=== PATIENT | female | born 1970 | race American Indian/Alaskan Native ===

== ENCOUNTER 2022-01-28 11:49 | Inpatient (IN) | payer SELFPAY ==
[2022-01-28] MEDS ORDERED: LORazepam 2 MG/ML VIAL IV ONE (12:04)
--- NOTE | 2022-01-28 12:43 | Emergency Department Report ---
<CHANDAN ESPINOSA - Last Filed: 01/28/22 15:30> ED Seizure HPI - General Stated Complaint: SEIZURE Time Seen by Provider: 01/28/22 11:54 - History of Present Illness Initial Comments: 51-year-old female brought in by EMS initially with likely stroke but on presentation patient was having seizure as described by patient boyfriend to the EMS. Patient has history of seizure but has not had any episode in the last 5 years and not currently taking any medication. According to EMS patient was postictal when they arrived at her home. Patient is currently having seizure in the emergency room at this point. She was treated with 2 mg of Ativan with some improvement. History is quite limited at this point. - Related Data Home Medications Medication Instructions Recorded Confirmed Last Taken No Known Home Medications [No 11/02/15 11/02/15 Unknown Reported Home Medications] Allergies Allergy/AdvReac Type Severity Reaction Status Date / Time ibuprofen [From Motrin] AdvReac Mild Unknown Verified 01/28/22 12:41 ED Review of Systems Comment: All other systems reviewed and negative Constitutional: malaise Neurological: weakness, other (seizure) ED Past Medical Hx - Past Medical History Hx Seizures: Yes (non-compliant with meds) - Surgical History Additional Surgical History: UNKNOWN - Social History Smoking Status: Current Every Day Smoker Substance Use Type: Alcohol - Medications Home Medications: Home Medications Medication Instructions Recorded Confirmed Last Taken Type No Known Home Medications [No 11/02/15 11/02/15 Unknown History Reported Home Medications] ED Physical Exam - General Limitations: No Limitations General appearance: postictal, other (pt became a little alert and was answering question at this time after the ativan) - Head Head exam: Present: normal inspection - Eye Eye exam: Present: normal appearance, scleral icterus, other Pupils: Present: normal accommodation - ENT ENT exam: Present: normal exam, normal orophraynx - Neck Neck exam: Present: normal inspection, full ROM. Absent: tenderness - Respiratory Respiratory exam: Present: normal lung sounds bilaterally. Absent: respiratory distress, accessory muscle use - Cardiovascular Cardiovascular Exam: Present: regular rate, normal rhythm, normal heart sounds - GI/Abdominal GI/Abdominal exam: Present: soft. Absent: distended, tenderness ED Course - Reevaluation(s) Reevaluation #1: 01/28/22 12:47 seizure activity with noted generalized jaundice-- will go ahead and load patient up with keppra, get CT head to rule out any intracranial abnormality and routine CBC, CMP, UA and drug screen. Reevaluation #2: 01/28/22 15:[address] Odonnell while waiting for patient labs-- ED Medical Decision Making - Lab Data Result diagrams: 01/28/22 12:27 01/28/22 12:27 ED Disposition Clinical Impression: Seizure, Pancreatic mass, Jaundice, Elevated liver enzymes, Alcohol abuse, Anemia Disposition: ADMITTED INPATIENT Is pt being admited?: No Does the pt Need Aspirin: No Condition: Stable Referrals: PRIMARY CARE, [Primary Care Provider] - 3-5 Days <MORRIS ODONNELL - Last Filed: 01/28/22 17:41> ED Review of Systems ROS: Stated complaint: SEIZURE Other details as noted in HPI ED Course Vital Signs 01/28/22 01/28/22 01/28/22 12:13 12:25 12:48 Temperature Pulse Rate 101 H Respiratory 15 16 Rate Blood Pressure 136/87 Blood Pressure [Right] O2 Sat by Pulse 100 100 100 Oximetry 01/28/22 01/28/22 15:07 17:24 Temperature 98.6 F Pulse Rate 99 H 92 H Respiratory 16 18 Rate Blood Pressure Blood Pressure 174/104 166/102 [Right] O2 Sat by Pulse 100 100 Oximetry ED Medical Decision Making - Lab Data Result diagrams: 01/28/22 12:27 01/28/22 12:27 Critical care attestation.: If time is entered above; I have spent that time in minutes in the direct care of this critically ill patient, excluding procedure time. ED Disposition Is pt being admited?: Yes Time of Disposition: 17:39 (Dr Pack/hospitalist)
[2022-01-28] MEDS ORDERED: SODIUM CHLORIDE 0.9% 1000 ML 1,000 ML IV ONE (12:49)
[2022-01-28] MEDS ORDERED: levETIRAcetam 1000 MG/NS 0.75% 1,000 MG/100 ML BAG IV ONE (12:49)
--- NOTE | 2022-01-28 13:13 | Cat Scan Report ---
CT head/brain wo con INDICATION / CLINICAL INFORMATION: 51 years Female; seizure. TECHNIQUE: Routine CT head without contrast. All CT scans at this location are performed using CT dos e reduction for ALARA by means of automated exposure control. COMPARISON: 11/02/2015 FINDINGS: BRAIN / INTRACRANIAL CONTENTS: No acute hemorrhage, mass effect, midline shift, hydrocephalus, or acu te, large territorial infarct. No signs of significant atrophy or chronic infarct. There are mild areas of decreased attenuation in the white matter of the cerebral hemispheres, as wel l as the gangliocapsular regions. These are nonspecific findings and may be related to microangiopath y (hypertension, diabetes, atherosclerosis), given the patient's age. CRANIOCERVICAL JUNCTION: No significant abnormality. ORBITS: No significant abnormality of visualized orbits. SINUSES / MASTOIDS: Mucosal thickening and/or desiccated secretions seen in the maxillary antra. Fron yaneth sinuses are hypoplastic. ADDITIONAL FINDINGS: Periodontal disease seen with the posterior molars along the right maxillary al veolar ridge. Atherosclerotic disease is seen in the anterior circulation. There is borderline widening of the atlanto-dens interval. Flexion-extension views of the cervical sp ine would be helpful in evaluating for any instability at this level. Note, a fibrous seen in the pos terior arch of C1 is suggested, which is of normal variant. IMPRESSION: 1. No focal mass, hemorrhage, hydrocephalus, or acute, large territorial infarct. Follow-up with diff usion imaging by MRI, as clinically warranted. 2. Borderline widening of the atlanto-dens interval, as described above. Follow-up with flexion and e xtension views of the cervical spine, as clinically warranted. Signer Name: Cayden Tsai MD, III Signed: 01/28/2022 1:08 PM Workstation Name: [id number]
[2022-01-28 13:14] LABS: Alanine Aminotransferase 139 units/L (7-56); Albumin 3.3 g/dL (3.9-5); Blood Urea Nitrogen 8 mg/dL (7-17); Calcium 9.6 mg/dL (8.4-10.2); Hemolysis Index 0
[2022-01-28 13:22] LABS: INR 1.14 (0.87-1.13)
[2022-01-28 13:23] LABS: Partial Thromboplastin Time 32.5 Sec. (24.2-36.6)
[2022-01-28 13:42] LABS: BUN/Creatinine Ratio 40
[2022-01-28 14:06] LABS: Red Blood Count 2.15 M/mm3 (3.65-5.03)
[2022-01-28 14:08] LABS: Hematocrit 16.6 % (30.3-42.9); Hemoglobin 5.3 gm/dl (10.1-14.3); Mean Corpuscular HGB Conc 32 % (30-34); Mean Corpuscular Volume 77 fl (79-97); Platelet Count 603 K/mm3 (140-440); Red Cell Distribution Width 22.1 % (13.2-15.2)
[2022-01-28 14:58] LABS: Eosinophils % (Manual) 0 % (0.0-4.3); Total Cells Counted 100
[2022-01-28 15:09] LABS: Anisocytosis 1+; Poikilocytosis 1+
[2022-01-28 15:10] LABS: Hypochromasia 2+; Large Platelets Rare; Platelet Estimate Consistent w Auto; Stomatocytes Few; Target Cells 1+
[2022-01-28 15:43] LABS: Bacteria,Urine 2+ /HPF (Negative); Bilirubin,Urine MOD (Negative); Blood,Urine MOD (Negative); Color,Urine Amber (Yellow); Mucus,Urine FEW /HPF; Protein,Urine <15 mg/dL mg/dL (Negative)
--- NOTE | 2022-01-28 15:46 | Emergency Department Report ---
Blank Doc - Documentation Documentation: Patient was signed out to me by previous treating provider Dr. Rodriges I interviewed patient. Patient initially had a syncopal episode with seizure in route with EMS. History of alcohol withdrawal seizure in the past. Patient does drink daily with last drink yesterday but denies history of recent alcohol withdrawal tremors. Last drink was last night. patient is noted to be jaundiced on physical examination and is unsure as to how long this has been present. Labs revealed significant anemia without reports of melena or hematochezia, elevated LFTs, and a low potassium. patient received Ativan and Keppra prior to my evaluation Additional tests have been ordered including type and screen, acute hepatitis panel, ammonia level, and magnesium CT abdomen pelvis with IV contrast ordered CT ABDOMEN AND PELVIS WITH CONTRAST HISTORY: jaundice, elevated lfts. COMPARISON: None. TECHNIQUE: CT images of the abdomen and pelvis were obtained following administration of intravenous contrast. All CT scans at this location are performed using CT dose reduction for ALARA by means of automated exposure control. CONTRAST: 100 ml of intravenous contrast administered. FINDINGS: Lungs/bones: Lung bases are clear Abdomen/pelvis: There is significant intra and extrahepatic biliary ductal dilatation. There is fluid surrounding the gallbladder. The common bile duct is very difficult to evaluate. There is a large masslike appearance within the pancreatic head measuring 5.3 x 5.2 cm. This appears to be obstructing the common bile duct and the portal vein. There is significant narrowing of the portal vein in the region of the masslike density. Large area of hypodensity within this mass in the region of the pancreatic head neck. Pancreatic ductal dilatation is seen in the body and distally. Mild thickening of the adjacent stomach wall is also seen however no bowel obstruction is seen. Large mesenteric nodes are seen. In the left upper abdomen there is a large mesenteric node measuring 1.6 cm peripancreatic nodes also suggested. Calcifications left kidney. There is prominence of left renal pelvis. Ureters are normal in size and appearance. Urinary bladder is distended. A few small inguinal nodes are identified. Constipation is seen within the colon. Uterus is heterogeneous with fluid in the endometrium. Appendix is not well seen. Spleen is unremarkable. The gallbladder is markedly distended best seen on coronal images. IMPRESSION: 1. Marked intra and extrahepatic biliary ductal dilatation. There is obstruction of the common bile duct with a large mass in the region of the pancreatic head measuring 5.3 x 5.2 cm. There is also severe stenosis and narrowing of the portal vein in the region of the mass is well. Adenopathy in the upper abdomen measuring up to 1.6 cm. 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 Pancreatic ductal dilatation is also identified. 2. Marked gallbladder distention with fluid surrounding the gallbladder secondary to obstructive change 3. Mild prominence of left renal pelvis with left calyceal calcifications. Ureter is normal in size and appearance. general surgeon Dr Milan consulted, requested GI consult and possible IR consult case d/w Dr crook, [facility], will consult pt will be admitted to the hospitalist service. case d/w Dr Pack
[2022-01-28 15:55] LABS: Amphetamine Screen,Urine PRESUMPTIVE NEGATIVE; Benzodiazepines Screen,Urine PRESUMPTIVE NEGATIVE; Cannabinoid Screen,Urine PRESUMPTIVE NEGATIVE; Cocaine Screen,Urine PRESUMPTIVE NEGATIVE; Methadone Screen,Urine PRESUMPTIVE NEGATIVE; Opiate Screen,Urine PRESUMPTIVE NEGATIVE
--- NOTE | 2022-01-28 17:17 | Cat Scan Report ---
CT ABDOMEN AND PELVIS WITH CONTRAST HISTORY: jaundice, elevated lfts. COMPARISON: None. TECHNIQUE: CT images of the abdomen and pelvis were obtained following administration of intravenous contrast. All CT scans at this location are performed using CT dose reduction for ALARA by means of automated exposure control. CONTRAST: 100 ml of intravenous contrast administered. FINDINGS: Lungs/bones: Lung bases are clear Abdomen/pelvis: There is significant intra and extrahepatic biliary ductal dilatation. There is flui d surrounding the gallbladder. The common bile duct is very difficult to evaluate. There is a large m asslike appearance within the pancreatic head measuring 5.3 x 5.2 cm. This appears to be obstructing the common bile duct and the portal vein. There is significant narrowing of the portal vein in the re gion of the masslike density. Large area of hypodensity within this mass in the region of the pancrea tic head neck. Pancreatic ductal dilatation is seen in the body and distally. Mild thickening of the adjacent stomach wall is also seen however no bowel obstruction is seen. Large mesenteric nodes are seen. In the left upper abdomen there is a large mesenteric node measuring 1.6 cm peripancreatic nodes also suggested. Calcifications left kidney. There is prominence of left renal pelvis. Ureters are normal in size and appearance. Urinary bladder is distended. A few small inguinal nodes are identified. Constipation is seen within the colon. Uterus is heterogeneous with fluid in the endometrium. Appendix is not well seen. Spleen i s unremarkable. The gallbladder is markedly distended best seen on coronal images. IMPRESSION: 1. Marked intra and extrahepatic biliary ductal dilatation. There is obstruction of the common bile d uct with a large mass in the region of the pancreatic head measuring 5.3 x 5.2 cm. There is also my re stenosis and narrowing of the portal vein in the region of the mass is well. Adenopathy in the upp er abdomen measuring up to 1.6 cm. Findings suggest pancreatic malignancy with metastatic harriett disea se. Pancreatic ductal dilatation is also identified. 2. Marked gallbladder distention with fluid surrounding the gallbladder secondary to obstructive napoles ge 3. Mild prominence of left renal pelvis with left calyceal calcifications. Ureter is normal in size a nd appearance. Signer Name: Gallito Sim MD Signed: 01/28/2022 5:13 PM Workstation Name: [id number]
[2022-01-28] MEDS ORDERED: SODIUM CHLORIDE 0.9% 500 ML 500 ML IV ONE (17:37)
[2022-01-28] MEDS ORDERED: LORazepam 2 MG/ML VIAL IV PRN ×2 (17:45)
[2022-01-28 18:53] LABS: Hepatitis B Surface Antigen Non-Reactive (Negative); Hepatitis C Virus Antibody Non-Reactive (NonReactive)
[2022-01-28] MEDS ORDERED: ACETAMINOPHEN 325 MG TAB PO PRN (20:58)
[2022-01-28] MEDS ORDERED: MORPHINE 2 MG/1 ML INJ IV PRN (20:58)
[2022-01-28] MEDS ORDERED: HYDROmorphone 1 MG/1 ML INJ IV PRN (20:58)
[2022-01-28] MEDS ORDERED: ONDANSETRON 4 MG/2 ML INJ IV PRN (20:58)
--- NOTE | 2022-01-28 21:14 | History and Physical Report ---
History of Present Illness Date of examination: 01/28/22 Date of admission: 01/28/2023 Chief complaint: Seizures x1 History of present illness: 51-year-old female brought in by EMS initially with likely stroke but on presentation patient was having seizure as described by patient boyfriend to the EMS. Patient has history of seizure but has not had any episode in the last 5 years and not currently taking any medication. According to EMS patient was postictal when they arrived at her home. Patient is currently having seizure in the emergency room at this point. She was treated with 2 mg of Ativan with some improvement. Patient is more alert and oriented during my examination Patient's face is yellow and the eyes are yellow. When asked about her facial color and eye discoloration---patient is unaware As loss of appetite for the past 1 month and loss of weight. - Past Medical History Hx Seizures: Yes (non-compliant with meds) - Surgical History Additional Surgical History: UNKNOWN - Social History Smoking Status: Current Every Day Smoker Substance Use Type: Alcohol regularly - Medications Home Medications: Home Medications Medication Instructions Recorded Confirmed Last Taken Type No Known Home Medications [No 11/02/15 11/02/15 Unknown History Reported Home Medications] Review of Systems Comment: All other systems reviewed and negative Constitutional: malaise Neurological: weakness, other (seizure) Medications and Allergies Allergies Allergy/AdvReac Type Severity Reaction Status Date / Time ibuprofen [From Motrin] AdvReac Mild Unknown Verified 01/28/22 12:41 Home Medications Medication Instructions Recorded Confirmed Last Taken Type No Known Home Medications [No 11/02/15 11/02/15 Unknown History Reported Home Medications] Active Meds: Active Medications Lorazepam (Lorazepam 2 Mg/Ml Vial) 2 mg IV Q1HR PRN PRN Reason: CIWA-Ar 8-15 Lorazepam (Lorazepam 2 Mg/Ml Vial) 4 mg IV Q1HR PRN PRN Reason: CIWA-Ar 16-25 Exam - Constitutional Vitals: Temp Pulse Resp BP Pulse Ox 98.6 F 92 H 18 166/102 100 01/28/22 17:24 01/28/22 17:24 01/28/22 17:24 01/28/22 17:24 01/28/22 17:24 General appearance: Present: mild distress, cachectic - EENT Eyes: Present: PERRL, scleral icterus ENT: hearing intact, clear oral mucosa - Neck Neck: Present: supple, normal ROM - Respiratory Respiratory effort: normal Respiratory: bilateral: CTA - Cardiovascular Heart rate: 78 Rhythm: regular Heart Sounds: Present: S1 & S2. Absent: rub, click - Extremities Extremities: no ischemia, pulses intact, pulses symmetrical, No edema Peripheral Pulses: within normal limits - Abdominal General gastrointestinal: Present: soft, non-tender, non-distended, normal bowel sounds Female genitourinary: Present: normal - Integumentary Integumentary: Present: clear, warm, dry - Musculoskeletal Musculoskeletal: gait normal, strength equal bilaterally - Psychiatric Psychiatric: appropriate mood/affect, intact judgment & insight - Neurologic Neurologic: CNII-XII intact, moves all extremities HEART Score - HEART Score Troponin: Troponin T < 0.010 ng/mL (0.00-0.029) 01/28/22 12:27 Results - Labs CBC & Chem 7: 01/29/22 03:54 01/29/22 03:54 Labs: Laboratory Last Values WBC 11.5 K/mm3 (4.5-11.0) H 01/28/22 12:27 RBC 2.15 M/mm3 (3.65-5.03) L 01/28/22 12:27 Hgb 5.3 gm/dl (10.1-14.3) L* 01/28/22 12:27 Hct 16.6 % (30.3-42.9) L* 01/28/22 12:27 MCV 77 fl (79-97) L 01/28/22 12:27 MCH 25 pg (28-32) L 01/28/22 12:27 MCHC 32 % (30-34) 01/28/22 12:27 RDW 22.1 % (13.2-15.2) H 01/28/22 12:27 Plt Count 603 K/mm3 (140-440) H 01/28/22 12:27 Lymph % (Auto) Getter Operator 01/28/22 12:27 [place] % (Auto) Getter Operator 01/28/22 12:27 Eos % (Auto) Getter Operator 01/28/22 12:27 Baso % (Auto) Getter Operator 01/28/22 12:27 Lymph # (Auto) Getter Operator 01/28/22 12:27 [place] # (Auto) Getter Operator 01/28/22 12:27 Eos # (Auto) Getter Operator 01/28/22 12:27 Baso # (Auto) Getter Operator 01/28/22 12:27 Add Manual Diff Complete 01/28/22 12:27 Total Counted 100 01/28/22 12:27 Seg Neutrophils % Getter Operator 01/28/22 12:27 Seg Neuts % (Manual) 83.0 % (40.0-70.0) H 01/28/22 12:27 Band Neutrophils % 0 % 01/28/22 12:27 Lymphocytes % (Manual) 9.0 % (13.4-35.0) L 01/28/22 12:27 Reactive Lymphs % (Man) 3.0 % 01/28/22 12:27 Monocytes % (Manual) 4.0 % (0.0-7.3) 01/28/22 12:27 Eosinophils % (Manual) 0 % (0.0-4.3) 01/28/22 12:27 Basophils % (Manual) 1.0 % (0.0-1.8) 01/28/22 12:27 Metamyelocytes % 0 % 01/28/22 12:27 Myelocytes % 0 % 01/28/22 12:27 Promyelocytes % 0 % 01/28/22 12:27 Blast Cells % 0 % 01/28/22 12:27 Nucleated RBC % 3.0 % (0.0-0.9) H 01/28/22 12:27 Seg Neutrophils # Getter Operator 01/28/22 12:27 Seg Neutrophils # Man 9.5 K/mm3 (1.8-7.7) H 01/28/22 12:27 Band Neutrophils # 0.0 K/mm3 01/28/22 12:27 Lymphocytes # (Manual) 1.0 K/mm3 (1.2-5.4) L 01/28/22 12:27 Abs React Lymphs (Man) 0.3 K/mm3 01/28/22 12:27 Monocytes # (Manual) 0.5 K/mm3 (0.0-0.8) 01/28/22 12:27 Eosinophils # (Manual) 0.0 K/mm3 (0.0-0.4) 01/28/22 12:27 Basophils # (Manual) 0.1 K/mm3 (0.0-0.1) 01/28/22 12:27 Metamyelocytes # 0.0 K/mm3 01/28/22 12:27 Myelocytes # 0.0 K/mm3 01/28/22 12:27 Promyelocytes # 0.0 K/mm3 01/28/22 12:27 Blast Cells # 0.0 K/mm3 01/28/22 12:27 WBC Morphology Not Reportable 01/28/22 12:27 Hypersegmented Neuts Not Reportable 01/28/22 12:27 Hyposegmented Neuts Few 01/28/22 12:27 Hypogranular Neuts Not Reportable 01/28/22 12:27 Smudge Cells Not Reportable 01/28/22 12:27 Toxic Granulation Not Reportable 01/28/22 12:27 Toxic Vacuolation Not Reportable 01/28/22 12:27 Dohle Bodies Not Reportable 01/28/22 12:27 Pelger-Huet Anomaly Not Reportable 01/28/22 12:27 Trevor Rods Not Reportable 01/28/22 12:27 Platelet Estimate Consistent w auto 01/28/22 12:27 Clumped Platelets Not Reportable 01/28/22 12:27 Plt Clumps, EDTA Not Reportable 01/28/22 12:27 Large Platelets Rare 01/28/22 12:27 Giant Platelets Not Reportable 01/28/22 12:27 Platelet Satelliting Not Reportable 01/28/22 12:27 Plt Morphology Comment Not Reportable 01/28/22 12:27 RBC Morphology Not Reportable 01/28/22 12:27 Dimorphic RBCs Not Reportable 01/28/22 12:27 Polychromasia Rare 01/28/22 12:27 Hypochromasia 2+ 01/28/22 12:27 Poikilocytosis 1+ 01/28/22 12:27 Anisocytosis 1+ 01/28/22 12:27 Microcytosis Not Reportable 01/28/22 12:27 Macrocytosis Not Reportable 01/28/22 12:27 Spherocytes Not Reportable 01/28/22 12:27 Pappenheimer Bodies Not Reportable 01/28/22 12:27 Sickle Cells Not Reportable 01/28/22 12:27 Target Cells 1+ 01/28/22 12:27 Tear Drop Cells Not Reportable 01/28/22 12:27 Ovalocytes Not Reportable 01/28/22 12:27 Stomatocytes Few 01/28/22 12:27 Helmet Cells Not Reportable 01/28/22 12:27 Lozoya-Elfrida Bodies Not Reportable 01/28/22 12:27 [place] Rings Not Reportable 01/28/22 12:27 [place] Cells Not Reportable 01/28/22 12:27 Bite Cells Not Reportable 01/28/22 12:27 Crenated Cell Not Reportable 01/28/22 12:27 Elliptocytes Not Reportable 01/28/22 12:27 Acanthocytes (Spur) Not Reportable 01/28/22 12:27 Rouleaux Not Reportable 01/28/22 12:27 Hemoglobin C Crystals Not Reportable 01/28/22 12:27 Schistocytes Not Reportable 01/28/22 12:27 Malaria parasites Not Reportable 01/28/22 12:27 Robby Bodies Not Reportable 01/28/22 12:27 Hem Pathologist Commnt No 01/28/22 12:27 PT 15.9 Sec. (12.2-14.9) H 01/28/22 12:27 INR 1.14 (0.87-1.13) H 01/28/22 12:27 APTT 32.5 Sec. (24.2-36.6) 01/28/22 12:27 Sodium 131 mmol/L (137-145) L 01/28/22 12:27 Potassium 3.1 mmol/L (3.6-5.0) L 01/28/22 12:27 Chloride 96.0 mmol/L (98-107) L 01/28/22 12:27 Carbon Dioxide 19 mmol/L (22-30) L 01/28/22 12:27 Anion Gap 19 mmol/L 01/28/22 12:27 BUN 8 mg/dL (7-17) 01/28/22 12:27 Creatinine < 0.2 mg/dL (0.6-1.2) L 01/28/22 12:27 Estimated GFR > 60 ml/min 01/28/22 12:27 BUN/Creatinine Ratio 40 % 01/28/22 12:27 Glucose 223 mg/dL (65-100) H 01/28/22 12:27 Calcium 9.6 mg/dL (8.4-10.2) 01/28/22 12:27 Magnesium 1.80 mg/dL (1.7-2.3) 01/28/22 12:27 Total Bilirubin 17.30 mg/dL (0.1-1.2) H 01/28/22 12:27 AST 246 units/L (5-40) H 01/28/22 12:27 ALT 139 units/L (7-56) H 01/28/22 12:27 Alkaline Phosphatase 798 units/L (35-129) H 01/28/22 12:27 Ammonia 28.0 umol/L (25-60) 01/28/22 15:36 Troponin T < 0.010 ng/mL (0.00-0.029) 01/28/22 12:27 NT-Pro-B Natriuret Pep 33.37 pg/mL (0-900) 01/28/22 12:27 Total Protein 6.1 g/dL (6.3-8.2) L 01/28/22 12:27 Albumin 3.3 g/dL (3.9-5) L 01/28/22 12:27 Albumin/Globulin Ratio 1.2 % 01/28/22 12:27 TSH 1.900 mlU/mL (0.270-4.200) 01/28/22 12:27 Urine Color Siria (Yellow) 01/28/22 15:07 Urine Turbidity Clear (Clear) 01/28/22 15:07 Urine pH 7.0 (5.0-7.0) 01/28/22 15:07 Ur Specific [place] 1.006 (1.003-1.030) 01/28/22 15:07 Urine Protein <15 mg/dl mg/dL (Negative) 01/28/22 15:07 Urine Glucose (UA) 150 mg/dL (Negative) 01/28/22 15:07 Urine Ketones Neg mg/dL (Negative) 01/28/22 15:07 Urine Blood Mod (Negative) 01/28/22 15:07 Urine Nitrite Neg (Negative) 01/28/22 15:07 Urine Bilirubin Mod (Negative) 01/28/22 15:07 Urine Ictotest Not Reportable 01/28/22 15:07 Urine Urobilinogen 4.0 mg/dL (<2.0) 01/28/22 15:07 Ur Leukocyte Esterase Tr (Negative) 01/28/22 15:07 Urine WBC (Auto) 3.0 /HPF (0.0-6.0) 01/28/22 15:07 Urine RBC (Auto) 52.0 /HPF (0.0-6.0) 01/28/22 15:07 U Epithel Cells (Auto) 17.0 /HPF (0-13.0) H 01/28/22 15:07 Urine Bacteria (Auto) 2+ /HPF (Negative) 01/28/22 15:07 Urine Mucus Few /HPF 01/28/22 15:07 Urine Opiates Screen Presumptive negative 01/28/22 15:07 Urine Methadone Screen Presumptive negative 01/28/22 15:07 Ur Barbiturates Screen Presumptive negative 01/28/22 15:07 Ur Phencyclidine Scrn Presumptive negative 01/28/22 15:07 Ur Amphetamines Screen Presumptive negative 01/28/22 15:07 U Benzodiazepines Scrn Presumptive negative 01/28/22 15:07 Urine Cocaine Screen Presumptive negative 01/28/22 15:07 U Marijuana (THC) Screen Presumptive negative 01/28/22 15:07 Drugs of Abuse Note Disclamer 01/28/22 15:07 Hepatitis A IgM Ab Non-reactive (NonReactive) 01/28/22 15:42 Hep Bs Antigen Non-reactive (Negative) 01/28/22 15:42 Hep B Core IgM Ab Non-reactive (NonReactive) 01/28/22 15:42 Hepatitis C Antibody Non-reactive (NonReactive) 01/28/22 15:42 Blood Type A POSITIVE 01/28/22 15:44 Antibody Screen Negative 01/28/22 15:44 Crossmatch See Detail 01/28/22 15:44 Short CBC 01/28/22 01/29/22 Range/Units 12:27 03:54 WBC 11.5 H 13.0 H (4.5-11.0) K/mm3 Hgb 5.3 L* 6.8 L (10.1-14.3) gm/dl Hct 16.6 L* 21.2 L (30.3-42.9) % Plt Count 603 H 540 H (140-440) K/mm3 BMP 01/28/22 01/29/22 12:27 03:54 Sodium 131 L 137 Potassium 3.1 L 3.2 L Chloride 96.0 L 104.6 Carbon Dioxide 19 L 17 L BUN 8 6 L Creatinine < 0.2 L < 0.2 L Glucose 223 H 127 H Calcium 9.6 9.0 Cardiac Enzymes 01/28/22 Range/Units 12:27 Troponin T < 0.010 (0.00-0.029) ng/mL Liver Function 01/28/22 01/29/22 Range/Units 12:27 03:54 Total Bilirubin 17.30 H 15.70 H (0.1-1.2) mg/dL AST 246 H 264 H (5-40) units/L ALT 139 H 141 H (7-56) units/L Alkaline Phosphatase 798 H 772 H (35-129) units/L Albumin 3.3 L 2.9 L (3.9-5) g/dL Urine 01/28/22 Range/Units 15:07 Urine Color Sir[place] (Yellow) Urine pH 7.0 (5.0-7.0) Ur Specific [place] 1.006 (1.003-1.030) Urine Protein <15 mg/dl (Negative) mg/dL Urine Glucose (UA) 150 (Negative) mg/dL - Imaging and Cardiology Imaging and Cardiology: Abdominal CAT scan Mild intra and extrahepatic biliary ductal dilatation. There is obstruction of the common bile duct with a large mass in the region of the pancreatic head measuring 5.3 cm X5 0.2 cm. There is also severe stenosis and narrowing of the portal vein in the region of the mass as well. Adenopathy in the upper abdomen measuring up to 1.2 0.6 cm. Findings high risk for pancreatic malignancy with metastatic harriett disease. Pa ncreatic ductal dilatation also identified. Mild gallbladder distention noted. Fluid surrounding the gallbladder secondary to obstructive change. Mild prominence of the left renal pelvis and left with left calyceal calcification ureter is normal. Head CT No acute findings. Assessment and Plan Advance Directives: Yes (Full code) VTE prophylaxis?: Chemical Plan of care discussed with patient/family: Yes - Patient Problems (1) Severe anemia Current Visit: Yes Status: Acute Plan to address problem: Transfuse 2 to 3 units of packed red blood cells Possibly secondary to pancreatic cancer (2) Obstructive jaundice Current Visit: Yes Status: Acute Plan to address problem: Patient has a high bilirubin count of 17.3, AST of 246 and ALT of 139. Alk phos 07 98. Pancreatic mass. (3) Pancreatic cancer Current Visit: Yes Status: Acute Qualifiers: Pancreatic malignancy location: head of pancreas Qualified Code(s): C25.0 - Malignant neoplasm of head of pancreas Plan to address problem: Patient has newly diagnosed pancreatic mass especially involving the head and compressing the common bile duct with spread to the lymph nodes Surgery consult was requested and GI consult was requested Patient is stage IV Refer to oncology as outpatient Refer to [place] oncology== Dr. Gaines Palliative treatment for now Will defer to the primary team Possible discharge after transfusion and normalizing hemoglobin and hematocrit (4) Malnutrition Current Visit: Yes Status: Chronic Qualifiers: Protein-calorie malnutrition severity: moderate Plan to address problem: Secondary to pancreatic cancer Dietary supplements (5) Hyponatremia Current Visit: Yes Status: Acute Plan to address problem: IV fluids for now (6) Hypokalemia Current Visit: Yes Status: Acute Plan to address problem: Supplemented (7) Advanced care planning/counseling discussion Current Visit: Yes Status: Acute Plan to address problem: Patient is in denial- Disease education conducted, care plan discussed, diagnosis discussed, prognosis discussed. Patient is full code. Patient acknowledges understanding and agreement with care plan. +30 minutes. Patient will be counseled about her diagnosis again by the primary team. Patient is referred to outpatient hematology oncology Dr. Gaines (8) DVT prophylaxis Current Visit: Yes Status: Acute Plan to address problem: On anticoagulation GI prophylaxis
[2022-01-28] MEDS ORDERED: SODIUM CHLORIDE 0.9% 500 ML 500 ML ONE (21:17)
[2022-01-29] MEDS: HEPARIN 5,000 UNIT/1 ML VIAL SUB-Q SCH ×3 (00:16→21:45)
[2022-01-29] MEDS: hydrALAZINE 20 MG/1 ML INJ IV PRN ×2 (02:39→14:45)
[2022-01-29] MEDS: D5W/0.9% NACL 1,000 ML IV SCH ×2 (02:40→20:08)
[2022-01-29 04:49] LABS: Hematocrit 21.2 % (30.3-42.9); Hemoglobin 6.8 gm/dl (10.1-14.3); Mean Corpuscular HGB Conc 32 % (30-34); Mean Corpuscular Volume 80 fl (79-97); Platelet Count 540 K/mm3 (140-440); Red Blood Count 2.66 M/mm3 (3.65-5.03); Red Cell Distribution Width 19.8 % (13.2-15.2)
[2022-01-29 05:07] LABS: Alanine Aminotransferase 141 units/L (7-56); Albumin 2.9 g/dL (3.9-5); Blood Urea Nitrogen 6 mg/dL (7-17); Hemolysis Index 0
[2022-01-29 05:16] LABS: BUN/Creatinine Ratio 30
[2022-01-29 06:26] LABS: Basophils % (Manual) 0 % (0.0-1.8); Total Cells Counted 100
[2022-01-29 06:27] LABS: Anisocytosis 1+; Hypochromasia 1+; Platelet Estimate Consistent w Auto; Target Cells 1+
[2022-01-29] MEDS ORDERED: SODIUM CHLORIDE 0.9% 500 ML 500 ML IV NR (08:52)
[2022-01-29] MEDS: POTASSIUM CHLORIDE 10 MEQ 10 MEQ/100 ML BAG IV SCH ×3 (09:32→13:22)
--- NOTE | 2022-01-29 09:45 | Electrocardiograph Report ---
[facility] Test Date: 2022-01-28 Test Time: 14:15:40 Pat Name: BOLIVAR [employer]AM[employer]ERS Department: Room: A476 1 Gender: F Lube Worker: ROVERTO : 1970 Requested By: CHANDAN ESPINOSA Order Number: [id number] Reading MD: Eris Cosme Measurements Intervals [place] Rate: 94 P: 1 RI: 149 QRS: 25 QRSD: 83 T: 15 QT: 374 QTc: 468 Interpretive Statements Sinus rhythm Probable LVH with secondary repol abnrm No previous ECG available for comparison Electronically Signed On 01-29-2022 9:45:30 EDT by Eris Cosme
--- NOTE | 2022-01-29 10:09 | Gastroenterology Consultation ---
History of Present Illness - Reason for Consult Consult date: 01/29/22 obstructive jaundice Requesting physician: ETIENNE PASTOR - History of Present Illness The patient is a 51 yo female who presented with seizure, found to have severe jaundice, with ct scan showing signs of pancreatic mass causing biliary/pd obstruction. pt has not noticed jaundice signs, does state her appetite has been poor for a few months, she has lost ~30 lbs in a couple months, and has mid abd discomfort with nausea. she has a previous history of alcohol use (? 2-3 beers daily, difficult to get history from pt), but last consumed alcohol in october. no known h/o pancreatitis. t bili 17, alk phos in 700s, ast/alt elevation on admission. levels were normal in 2015 based on records here. Past History Past Medical History: other (seizure) Past Surgical History: No surgical history Social history: alcohol abuse Family history: no significant family history Medications and Allergies Allergies Allergy/AdvReac Type Severity Reaction Status Date / Time ibuprofen [From Motrin] AdvReac Mild Unknown Verified 01/28/22 12:41 Home Medications Medication Instructions Recorded Confirmed Last Taken Type No Known Home Medications [No 11/02/15 01/29/22 Unknown History Reported Home Medications] Active Meds: Active Medications Acetaminophen (Acetaminophen 325 Mg Tab) 650 mg PO Q4H PRN PRN Reason: Pain MILD(1-3)/Fever >100.5/TAMAYO Heparin Sodium (Porcine) (Heparin 5,000 Unit/1 Ml Vial) 5,000 unit SUB-Q Q12HR RAE Last Admin: 01/29/22 09:33 Dose: 5,000 unit Hydralazine HCl (Hydralazine 20 Mg/1 Ml Inj) 10 mg IV Q6HR PRN PRN Reason: Hypertension Last Admin: 01/29/22 02:39 Dose: 10 mg Hydromorphone HCl (Hydromorphone 1 Mg/1 Ml Inj) 0.5 mg IV Q3H PRN PRN Reason: Pain , Severe (7-10) Dextrose/Sodium Chloride (D5ns) 1,000 mls @ 75 mls/hr IV DIRECT RAE Last Admin: 01/29/22 02:40 Dose: 75 mls/hr Levetiracetam 500 mg/ Dextrose 105 mls @ 400 mls/hr IV Q12HR RAE Potassium Chloride (Kcl 10meq/100ml) 10 meq in 100 mls @ 100 mls/hr IV Q1H RAE Stop: 01/29/22 12:59 Last Admin: 01/29/22 09:32 Dose: 100 mls/hr Potassium Chloride (Kcl 10meq/100ml) 10 meq in 100 mls @ 100 mls/hr IV Q1H RAE Stop: 01/29/22 17:59 Sodium Chloride (Nacl 0.9% 500 Ml) 500 mls @ 0 mls/hr IV ONCE NR Stop: 01/30/22 08:51 Lorazepam (Lorazepam 2 Mg/Ml Vial) 2 mg IV Q1HR PRN PRN Reason: CIWA-Ar 8-15 Lorazepam (Lorazepam 2 Mg/Ml Vial) 4 mg IV Q1HR PRN PRN Reason: CIWA-Ar 16-25 Morphine Sulfate (Morphine 2 Mg/1 Ml Inj) 2 mg IV Q4H PRN PRN Reason: Pain, Moderate (4-6) Ondansetron HCl (Ondansetron 4 Mg/2 Ml Inj) 4 mg IV Q8H PRN PRN Reason: Nausea And Vomiting Oxycodone/Acetaminophen (Oxycodone /Acetaminophen 5-325mg Tab) 1 tab PO Q6H PRN PRN Reason: Pain, Moderate (4-6) Sodium Chloride (Sodium Chloride 0.9% 10 Ml Flush Syringe) 10 ml IV BID [facility] Last Admin: 01/29/22 09:34 Dose: 10 ml Sodium Chloride (Sodium Chloride 0.9% 10 Ml Flush Syringe) 10 ml IV PRN PRN PRN Reason: LINE FLUSH Reviewed/updated patient's home and current medications Review of Systems - Review of Systems All systems: negative (per HPI) Exam - Constitutional Vital Signs: Temp Pulse Resp BP Pulse Ox 98.5 F 114 H 18 114/73 99 01/29/22 08:15 01/29/22 08:15 01/29/22 08:15 01/29/22 08:15 01/29/22 08:15 General appearance: no acute distress, other (thin, chronically ill appearing) - EENT Eyes: scleral icterus - Respiratory Respiratory effort: normal Respiratory: bilateral: CTA - Cardiovascular Rhythm: regular Heart Sounds: Present: S1 & S2 - Gastrointestinal General gastrointestinal: Present: soft, non-distended - Neurologic Neurological: alert and oriented x3 - Psychiatric Psychiatric: appropriate mood/affect - Labs CBC & Chem 7: 01/29/22 03:54 01/29/22 03:54 Lab Results: Laboratory Results - last 24 hr 01/28/22 01/28/22 01/28/22 12:27 12:27 12:27 WBC 11.5 H RBC 2.15 L Hgb 5.3 L* Hct 16.6 L* MCV 77 L MCH 25 L MCHC 32 RDW 22.1 H Plt Count 603 H Lymph % (Auto) [place] % (Auto) [place] Eos % (Auto) [place] Baso % (Auto) [place] Lymph # (Auto) [place] # (Auto) [place] Eos # (Auto) [place] Baso # (Auto) [place] Add Manual Diff Complete Total Counted 100 Seg Neutrophils % [place] Seg Neuts % (Manual) 83.0 H Band Neutrophils % 0 Lymphocytes % (Manual) 9.0 L Reactive Lymphs % (Man) 3.0 Monocytes % (Manual) 4.0 Eosinophils % (Manual) 0 Basophils % (Manual) 1.0 Metamyelocytes % 0 Myelocytes % 0 Promyelocytes % 0 Blast Cells % 0 Nucleated RBC % 3.0 H Seg Neutrophils # [place] Seg Neutrophils # Man 9.5 H Band Neutrophils # 0.0 Lymphocytes # (Manual) 1.0 L Abs React Lymphs (Man) 0.3 Monocytes # (Manual) 0.5 Eosinophils # (Manual) 0.0 Basophils # (Manual) 0.1 Metamyelocytes # 0.0 Myelocytes # 0.0 Promyelocytes # 0.0 Blast Cells # 0.0 WBC Morphology Not Reportable Hypersegmented Neuts Not Reportable Hyposegmented Neuts Few Hypogranular Neuts Not Reportable Smudge Cells Not Reportable Toxic Granulation Not Reportable Toxic Vacuolation Not Reportable Dohle Bodies Not Reportable Pelger-Huet Anomaly Not Reportable Trevor Rods Not Reportable Platelet Estimate Consistent w auto Clumped Platelets Not Reportable Plt Clumps, EDTA Not Reportable Large Platelets Rare Giant Platelets Not Reportable Platelet Satelliting Not Reportable Plt Morphology Comment Not Reportable RBC Morphology Not Reportable Dimorphic RBCs Not Reportable Polychromasia Rare Hypochromasia 2+ Poikilocytosis 1+ Anisocytosis 1+ Microcytosis Not Reportable Macrocytosis Not Reportable Spherocytes Not Reportable Pappenheimer Bodies Not Reportable Sickle Cells Not Reportable Target Cells 1+ Tear Drop Cells Not Reportable Ovalocytes Not Reportable Stomatocytes Few Helmet Cells Not Reportable [place] Bodies Not Reportable [place] Rings Not Reportable [place] Cells Not Reportable Bite Cells Not Reportable Crenated Cell Not Reportable Elliptocytes Not Reportable Acanthocytes (Spur) Not Reportable Rouleaux Not Reportable Hemoglobin C Crystals Not Reportable Schistocytes Not Reportable Malaria parasites Not Reportable Robby Bodies Not Reportable Hem Pathologist Commnt No PT INR APTT Sodium 131 L Potassium 3.1 L Chloride 96.0 L Carbon Dioxide 19 L Anion Gap 19 BUN 8 Creatinine < 0.2 L Estimated GFR > 60 BUN/Creatinine Ratio 40 Glucose 223 H Calcium 9.6 Magnesium Total Bilirubin 17.30 H AST 246 H ALT 139 H Alkaline Phosphatase 798 H Ammonia Troponin T < 0.010 NT-Pro-B Natriuret Pep Total Protein 6.1 L Albumin 3.3 L Albumin/Globulin Ratio 1.2 TSH 1.900 Urine Color Urine Turbidity Urine pH Ur Specific [place] Urine Protein Urine Glucose (UA) Urine Ketones Urine Blood Urine Nitrite Urine Bilirubin Urine Ictotest Urine Urobilinogen Ur Leukocyte Esterase Urine WBC (Auto) Urine RBC (Auto) U Epithel Cells (Auto) Urine Bacteria (Auto) Urine Mucus Urine Opiates Screen Urine Methadone Screen Ur Barbiturates Screen Ur Phencyclidine Scrn Ur Amphetamines Screen U Benzodiazepines Scrn Urine Cocaine Screen U Marijuana (THC) Screen Drugs of Abuse Note Hepatitis A IgM Ab Hep Bs Antigen Hep B Core IgM Ab Hepatitis C Antibody Blood Type Antibody Screen Crossmatch 01/28/22 01/28/22 01/28/22 12:27 12:27 12:27 WBC RBC Hgb Hct MCV MCH MCHC RDW Plt Count Lymph % (Auto) [place] % (Auto) Eos % (Auto) Baso % (Auto) Lymph # (Auto) [place] # (Auto) Eos # (Auto) Baso # (Auto) Add Manual Diff Total Counted Seg Neutrophils % Seg Neuts % (Manual) Band Neutrophils % Lymphocytes % (Manual) Reactive Lymphs % (Man) Monocytes % (Manual) Eosinophils % (Manual) Basophils % (Manual) Metamyelocytes % Myelocytes % Promyelocytes % Blast Cells % Nucleated RBC % Seg Neutrophils # Seg Neutrophils # Man Band Neutrophils # Lymphocytes # (Manual) Abs React Lymphs (Man) Monocytes # (Manual) Eosinophils # (Manual) Basophils # (Manual) Metamyelocytes # Myelocytes # Promyelocytes # Blast Cells # WBC Morphology Hypersegmented Neuts Hyposegmented Neuts Hypogranular Neuts Smudge Cells Toxic Granulation Toxic Vacuolation Dohle Bodies Pelger-Huet Anomaly Trevor Rods Platelet Estimate Clumped Platelets Plt Clumps, EDTA Large Platelets Giant Platelets Platelet Satelliting Plt Morphology Comment RBC Morphology Dimorphic RBCs Polychromasia Hypochromasia Poikilocytosis Anisocytosis Microcytosis Macrocytosis Spherocytes Pappenheimer Bodies Sickle Cells Target Cells Tear Drop Cells Ovalocytes Stomatocytes Helmet Cells Lozoya[place] Bodies [place] Rings Pia Cells Bite Cells Crenated Cell Elliptocytes Acanthocytes (Spur) Rouleaux Hemoglobin C Crystals Schistocytes Malaria parasites Robby Bodies Hem Pathologist Commnt PT 15.9 H INR 1.14 H APTT 32.5 Sodium Potassium Chloride Carbon Dioxide Anion Gap BUN Creatinine Estimated GFR BUN/Creatinine Ratio Glucose Calcium Magnesium 1.80 Total Bilirubin AST ALT Alkaline Phosphatase Ammonia Troponin T NT-Pro-B Natriuret Pep 33.37 Total Protein Albumin Albumin/Globulin Ratio TSH Urine Color Urine Turbidity Urine pH Ur Specific [place] Urine Protein Urine Glucose (UA) Urine Ketones Urine Blood Urine Nitrite Urine Bilirubin Urine Ictotest Urine Urobilinogen Ur Leukocyte Esterase Urine WBC (Auto) Urine RBC (Auto) U Epithel Cells (Auto) Urine Bacteria (Auto) Urine Mucus Urine Opiates Screen Urine Methadone Screen Ur Barbiturates Screen Ur Phencyclidine Scrn Ur Amphetamines Screen U Benzodiazepines Scrn Urine Cocaine Screen U Marijuana (THC) Screen Drugs of Abuse Note Hepatitis A IgM Ab Hep Bs Antigen Hep B Core IgM Ab Hepatitis C Antibody Blood Type Antibody Screen Crossmatch 01/28/22 01/28/22 01/28/22 15:07 15:07 15:36 WBC RBC Hgb Hct MCV MCH MCHC RDW Plt Count Lymph % (Auto) [place] % (Auto) Eos % (Auto) Baso % (Auto) Lymph # (Auto) [place] # (Auto) Eos # (Auto) Baso # (Auto) Add Manual Diff Total Counted Seg Neutrophils % Seg Neuts % (Manual) Band Neutrophils % Lymphocytes % (Manual) Reactive Lymphs % (Man) Monocytes % (Manual) Eosinophils % (Manual) Basophils % (Manual) Metamyelocytes % Myelocytes % Promyelocytes % Blast Cells % Nucleated RBC % Seg Neutrophils # Seg Neutrophils # Man Band Neutrophils # Lymphocytes # (Manual) Abs React Lymphs (Man) Monocytes # (Manual) Eosinophils # (Manual) Basophils # (Manual) Metamyelocytes # Myelocytes # Promyelocytes # Blast Cells # WBC Morphology Hypersegmented Neuts Hyposegmented Neuts Hypogranular Neuts Smudge Cells Toxic Granulation Toxic Vacuolation Dohle Bodies Pelger-Huet Anomaly Trevor Rods Platelet Estimate Clumped Platelets Plt Clumps, EDTA Large Platelets Giant Platelets Platelet Satelliting Plt Morphology Comment RBC Morphology Dimorphic RBCs Polychromasia Hypochromasia Poikilocytosis Anisocytosis Microcytosis Macrocytosis Spherocytes Pappenheimer Bodies Sickle Cells Target Cells Tear Drop Cells Ovalocytes Stomatocytes Helmet Cells [place]ozoya-[place] Bodies [place] Rings Pia Cells Bite Cells Crenated Cell Elliptocytes Acanthocytes (Spur) Rouleaux Hemoglobin C Crystals Schistocytes Malaria parasites Robby Bodies Hem Pathologist Commnt PT INR APTT Sodium Potassium Chloride Carbon Dioxide Anion Gap BUN Creatinine Estimated GFR BUN/Creatinine Ratio Glucose Calcium Magnesium Total Bilirubin AST ALT Alkaline Phosphatase Ammonia 28.0 Troponin T NT-Pro-B Natriuret Pep Total Protein Albumin Albumin/Globulin Ratio TSH Urine Color [place] Urine Turbidity Clear Urine pH 7.0 Ur Specific [place] 1.006 Urine Protein <15 mg/dl Urine Glucose (UA) 150 Urine Ketones Neg Urine Blood Mod Urine Nitrite Neg Urine Bilirubin Mod Urine Ictotest Not Reportable Urine Urobilinogen 4.0 Ur Leukocyte Esterase Tr Urine WBC (Auto) 3.0 Urine RBC (Auto) 52.0 U Epithel Cells (Auto) 17.0 H Urine Bacteria (Auto) 2+ Urine Mucus Few Urine Opiates Screen Presumptive negative Urine Methadone Screen Presumptive negative Ur Barbiturates Screen Presumptive negative Ur Phencyclidine Scrn Presumptive negative Ur Amphetamines Screen Presumptive negative U Benzodiazepines Scrn Presumptive negative Urine Cocaine Screen Presumptive negative U Marijuana (THC) Screen Presumptive negative Drugs of Abuse Note Disclamer Hepatitis A IgM Ab Hep Bs Antigen Hep B Core IgM Ab Hepatitis C Antibody Blood Type Antibody Screen Crossmatch 01/28/22 01/28/22 01/29/22 15:42 15:44 03:54 WBC 13.0 H RBC 2.66 L Hgb 6.8 L Hct 21.2 L MCV 80 MCH 26 L MCHC 32 RDW 19.8 H Plt Count 540 H Lymph % (Auto) [place] % (Auto) [place] Eos % (Auto) Baso % (Auto) Lymph # (Auto) [place] # (Auto) Eos # (Auto) Baso # (Auto) Add Manual Diff Complete Total Counted 100 Seg Neutrophils % [place] Seg Neuts % (Manual) 61.0 Band Neutrophils % 0 Lymphocytes % (Manual) 26.0 Reactive Lymphs % (Man) 0 Monocytes % (Manual) 11.0 H Eosinophils % (Manual) 2.0 Basophils % (Manual) 0 Metamyelocytes % 0 Myelocytes % 0 Promyelocytes % 0 Blast Cells % 0 Nucleated RBC % Not Reportable Seg Neutrophils # Seg Neutrophils # Man 7.9 H Band Neutrophils # 0.0 Lymphocytes # (Manual) 3.4 Abs React Lymphs (Man) 0.0 Monocytes # (Manual) 1.4 H Eosinophils # (Manual) 0.3 Basophils # (Manual) 0.0 Metamyelocytes # 0.0 Myelocytes # 0.0 Promyelocytes # 0.0 Blast Cells # 0.0 WBC Morphology Not Reportable Hypersegmented Neuts Not Reportable Hyposegmented Neuts Not Reportable Hypogranular Neuts Not Reportable Smudge Cells Not Reportable Toxic Granulation Not Reportable Toxic Vacuolation Not Reportable Dohle Bodies Not Reportable Pelger-Huet Anomaly Not Reportable Trevor Rods Not Reportable Platelet Estimate Consistent w auto Clumped Platelets Not Reportable Plt Clumps, EDTA Not Reportable Large Platelets Not Reportable Giant Platelets Not Reportable Platelet Satelliting Not Reportable Plt Morphology Comment Not Reportable RBC Morphology Not Reportable Dimorphic RBCs Not Reportable Polychromasia Not Reportable Hypochromasia 1+ Poikilocytosis Not Reportable Anisocytosis 1+ Microcytosis Not Reportable Macrocytosis Not Reportable Spherocytes Not Reportable Pappenheimer Bodies Not Reportable Sickle Cells Not Reportable Target Cells 1+ Tear Drop Cells Not Reportable Ovalocytes Not Reportable Stomatocytes Helmet Cells Not Reportable Lozoya-[place] Bodies Not Reportable [place] Rings Not Reportable [place] Cells Not Reportable Bite Cells Not Reportable Crenated Cell Not Reportable Elliptocytes Not Reportable Acanthocytes (Spur) Not Reportable Rouleaux Not Reportable Hemoglobin C Crystals Not Reportable Schistocytes Not Reportable Malaria parasites Not Reportable Robby Bodies Not Reportable Hem Pathologist Commnt No PT INR APTT Sodium Potassium Chloride Carbon Dioxide Anion Gap BUN Creatinine Estimated GFR BUN/Creatinine Ratio Glucose Calcium Magnesium Total Bilirubin AST ALT Alkaline Phosphatase Ammonia Troponin T NT-Pro-B Natriuret Pep Total Protein Albumin Albumin/Globulin Ratio TSH Urine Color Urine Turbidity Urine pH Ur Specific [place] Urine Protein Urine Glucose (UA) Urine Ketones Urine Blood Urine Nitrite Urine Bilirubin Urine Ictotest Urine Urobilinogen Ur Leukocyte Esterase Urine WBC (Auto) Urine RBC (Auto) U Epithel Cells (Auto) Urine Bacteria (Auto) Urine Mucus Urine Opiates Screen Urine Methadone Screen Ur Barbiturates Screen Ur Phencyclidine Scrn Ur Amphetamines Screen U Benzodiazepines Scrn Urine Cocaine Screen U Marijuana (THC) Screen Drugs of Abuse Note Hepatitis A IgM Ab Non-reactive Hep Bs Antigen Non-reactive Hep B Core IgM Ab Non-reactive Hepatitis C Antibody Non-reactive Blood Type A POSITIVE Antibody Screen Negative Crossmatch See Detail 01/29/22 03:54 WBC RBC Hgb Hct MCV MCH MCHC RDW Plt Count Lymph % (Auto) [place] % (Auto) Eos % (Auto) Baso % (Auto) Lymph # (Auto) [place] # (Auto) Eos # (Auto) Baso # (Auto) Add Manual Diff Total Counted Seg Neutrophils % Seg Neuts % (Manual) Band Neutrophils % Lymphocytes % (Manual) Reactive Lymphs % (Man) Monocytes % (Manual) Eosinophils % (Manual) Basophils % (Manual) Metamyelocytes % Myelocytes % Promyelocytes % Blast Cells % Nucleated RBC % Seg Neutrophils # Seg Neutrophils # Man Band Neutrophils # Lymphocytes # (Manual) Abs React Lymphs (Man) Monocytes # (Manual) Eosinophils # (Manual) Basophils # (Manual) Metamyelocytes # Myelocytes # Promyelocytes # Blast Cells # WBC Morphology Hypersegmented Neuts Hyposegmented Neuts Hypogranular Neuts Smudge Cells Toxic Granulation Toxic Vacuolation Dohle Bodies Pelger-Huet Anomaly Trevor Rods Platelet Estimate Clumped Platelets Plt Clumps, EDTA Large Platelets Giant Platelets Platelet Satelliting Plt Morphology Comment RBC Morphology Dimorphic RBCs Polychromasia Hypochromasia Poikilocytosis Anisocytosis Microcytosis Macrocytosis Spherocytes Pappenheimer Bodies Sickle Cells Target Cells Tear Drop Cells Ovalocytes Stomatocytes Helmet Cells [place] Bodies [place] Rings Pia Cells Bite Cells Crenated Cell Elliptocytes Acanthocytes (Spur) Rouleaux Hemoglobin C Crystals Schistocytes Malaria parasites Robby Bodies Hem Pathologist Commnt PT INR APTT Sodium 137 Potassium 3.2 L Chloride 104.6 Carbon Dioxide 17 L Anion Gap 19 BUN 6 L Creatinine < 0.2 L Estimated GFR > 60 BUN/Creatinine Ratio 30 Glucose 127 H Calcium 9.0 Magnesium Total Bilirubin 15.70 H AST 264 H ALT 141 H Alkaline Phosphatase 772 H Ammonia Troponin T NT-Pro-B Natriuret Pep Total Protein 5.6 L Albumin 2.9 L Albumin/Globulin Ratio 1.1 TSH Urine Color Urine Turbidity Urine pH Ur Specific [place] Urine Protein Urine Glucose (UA) Urine Ketones Urine Blood Urine Nitrite Urine Bilirubin Urine Ictotest Urine Urobilinogen Ur Leukocyte Esterase Urine WBC (Auto) Urine RBC (Auto) U Epithel Cells (Auto) Urine Bacteria (Auto) Urine Mucus Urine Opiates Screen Urine Methadone Screen Ur Barbiturates Screen Ur Phencyclidine Scrn Ur Amphetamines Screen U Benzodiazepines Scrn Urine Cocaine Screen U Marijuana (THC) Screen Drugs of Abuse Note Hepatitis A IgM Ab Hep Bs Antigen Hep B Core IgM Ab Hepatitis C Antibody Blood Type Antibody Screen Crossmatch - Imaging CT Scan: report reviewed Assessment and Plan 1. Obstructive jaundice 2. Pancreatic mass 3. Microcytic anemia - severe anemia, no overt gi bleeding -findings concerning for malignant obstruction, may be past resectability stage if confirmed malignancy (defer to surgery on this). no signs of cholangitis at present time. discussed findings with pt. will need diagnostic study (IR for biopsy if lesion amenable), recommend oncology consult. will need eventual ercp due to biliary obstruction/jaundice. monitor liver enzymes
[2022-01-29] MEDS: levETIRAcetam 500 MG in DEXTROSE 5% IN WATER 100 ML IV SCH ×2 (10:25→21:45)
[2022-01-29] MEDS ORDERED: POTASSIUM CHLORIDE ER 20 MEQ TAB PO ONE ×2 (10:29→13:30)
--- NOTE | 2022-01-29 13:08 | Consultation ---
History of Present Illness Consult date: 01/29/22 Chief complaint: Pancreatic mass and jaundice - History of present illness History of present illness: See GI HPI. Past History Past Medical History: other (seizure) Past Surgical History: No surgical history Social history: alcohol abuse Family history: no significant family history Medications and Allergies Allergies Allergy/AdvReac Type Severity Reaction Status Date / Time ibuprofen [From Motrin] AdvReac Mild Unknown Verified 01/28/22 12:41 Home Medications Medication Instructions Recorded Confirmed Last Taken Type No Known Home Medications [No 11/02/15 01/29/22 Unknown History Reported Home Medications] Active Meds: Active Medications Acetaminophen (Acetaminophen 325 Mg Tab) 650 mg PO Q4H PRN PRN Reason: Pain MILD(1-3)/Fever >100.5/TAMAYO Heparin Sodium (Porcine) (Heparin 5,000 Unit/1 Ml Vial) 5,000 unit SUB-Q Q12HR RAE Last Admin: 01/29/22 09:33 Dose: 5,000 unit Hydralazine HCl (Hydralazine 20 Mg/1 Ml Inj) 10 mg IV Q6HR PRN PRN Reason: Hypertension Last Admin: 01/29/22 02:39 Dose: 10 mg Hydromorphone HCl (Hydromorphone 1 Mg/1 Ml Inj) 0.5 mg IV Q3H PRN PRN Reason: Pain , Severe (7-10) Dextrose/Sodium Chloride (D5ns) 1,000 mls @ 75 mls/hr IV DIRECT RAE Last Admin: 01/29/22 02:40 Dose: 75 mls/hr Levetiracetam 500 mg/ Dextrose 105 mls @ 400 mls/hr IV Q12HR RAE Last Admin: 01/29/22 10:25 Dose: 400 mls/hr Sodium Chloride (Nacl 0.9% 500 Ml) 500 mls @ 0 mls/hr IV ONCE NR Stop: 01/30/22 08:51 Lorazepam (Lorazepam 2 Mg/Ml Vial) 2 mg IV Q1HR PRN PRN Reason: CIWA-Ar 8-15 Lorazepam (Lorazepam 2 Mg/Ml Vial) 4 mg IV Q1HR PRN PRN Reason: CIWA-Ar 16-25 Morphine Sulfate (Morphine 2 Mg/1 Ml Inj) 2 mg IV Q4H PRN PRN Reason: Pain, Moderate (4-6) Ondansetron HCl (Ondansetron 4 Mg/2 Ml Inj) 4 mg IV Q8H PRN PRN Reason: Nausea And Vomiting Oxycodone/Acetaminophen (Oxycodone /Acetaminophen 5-325mg Tab) 1 tab PO Q6H PRN PRN Reason: Pain, Moderate (4-6) Sodium Chloride (Sodium Chloride 0.9% 10 Ml Flush Syringe) 10 ml IV BID RAE Last Admin: 01/29/22 09:34 Dose: 10 ml Sodium Chloride (Sodium Chloride 0.9% 10 Ml Flush Syringe) 10 ml IV PRN PRN PRN Reason: LINE FLUSH Review of Systems All systems: negative (none) Exam Vital Signs Pulse Ox 100 01/28/22 12:13 - General physical appearance Positive: well developed, well nourished, no distress - Eyes Positive: PERRL, normal occular movement, icteric - ENT Positive: normal pinna, normal nares, normal mucosa, no hearing loss, no congestion - Neck Positive: no masses, no bruits, trachea midline, no venous distension - Respiratory Positive: normal expansion, normal respiratory effort, clear to auscultation - Cardiovascular Rhythm: regular Heart Sounds: Present: S1 & S2. Absent: rub, click - Extremities Extremities: no ischemia, pulses symmetrical, No edema - Breasts Breasts: normal, no mass, no skin changes - Abdomen Abdomen: Present: soft, bowel sounds normal. Absent: tender, distended Hernia: none - Genitourinary Male Genitourinary: normal Female Genitourinary: normal - Integumentary no rash, no growths, no abnormal pigmentation - Neurologic Neurologic: alert and oriented to time, place and person, motor strength and sensation are grossly intact - Musculoskeletal normal gait, normal posture - Psychiatric Psychiatric: appropriate mood/affect, intact judgment & insight Results - Labs 01/29/22 03:54 01/29/22 03:54 Abnormal lab results 01/28/22 01/28/22 01/28/22 Range/Units 12:27 12:27 12:27 WBC 11.5 H (4.5-11.0) K/mm3 RBC 2.15 L (3.65-5.03) M/mm3 Hgb 5.3 L* (10.1-14.3) gm/dl Hct 16.6 L* (30.3-42.9) % MCV 77 L (79-97) fl MCH 25 L (28-32) pg RDW 22.1 H (13.2-15.2) % Plt Count 603 H (140-440) K/mm3 Seg Neuts % (Manual) 83.0 H (40.0-70.0) % Lymphocytes % (Manual) 9.0 L (13.4-35.0) % Monocytes % (Manual) (0.0-7.3) % Nucleated RBC % 3.0 H (0.0-0.9) % Seg Neutrophils # Man 9.5 H (1.8-7.7) K/mm3 Lymphocytes # (Manual) 1.0 L (1.2-5.4) K/mm3 Monocytes # (Manual) (0.0-0.8) K/mm3 PT 15.9 H (12.2-14.9) Sec. INR 1.14 H (0.87-1.13) Sodium 131 L (137-145) mmol/L Potassium 3.1 L (3.6-5.0) mmol/L Chloride 96.0 L (98-107) mmol/L Carbon Dioxide 19 L (22-30) mmol/L BUN (7-17) mg/dL Creatinine < 0.2 L (0.6-1.2) mg/dL Glucose 223 H (65-100) mg/dL Total Bilirubin 17.30 H (0.1-1.2) mg/dL AST 246 H (5-40) units/L ALT 139 H (7-56) units/L Alkaline Phosphatase 798 H (35-129) units/L Total Protein 6.1 L (6.3-8.2) g/dL Albumin 3.3 L (3.9-5) g/dL U Epithel Cells (Auto) (0-13.0) /HPF Crossmatch 01/28/22 01/28/22 01/29/22 Range/Units 15:07 15:44 03:54 WBC 13.0 H (4.5-11.0) K/mm3 RBC 2.66 L (3.65-5.03) M/mm3 Hgb 6.8 L (10.1-14.3) gm/dl Hct 21.2 L (30.3-42.9) % MCV (79-97) fl MCH 26 L (28-32) pg RDW 19.8 H (13.2-15.2) % Plt Count 540 H (140-440) K/mm3 Seg Neuts % (Manual) (40.0-70.0) % Lymphocytes % (Manual) (13.4-35.0) % Monocytes % (Manual) 11.0 H (0.0-7.3) % Nucleated RBC % (0.0-0.9) % Seg Neutrophils # Man 7.9 H (1.8-7.7) K/mm3 Lymphocytes # (Manual) (1.2-5.4) K/mm3 Monocytes # (Manual) 1.4 H (0.0-0.8) K/mm3 PT (12.2-14.9) Sec. INR (0.87-1.13) Sodium (137-145) mmol/L Potassium (3.6-5.0) mmol/L Chloride (98-107) mmol/L Carbon Dioxide (22-30) mmol/L BUN (7-17) mg/dL Creatinine (0.6-1.2) mg/dL Glucose (65-100) mg/dL Total Bilirubin (0.1-1.2) mg/dL AST (5-40) units/L ALT (7-56) units/L Alkaline Phosphatase (35-129) units/L Total Protein (6.3-8.2) g/dL Albumin (3.9-5) g/dL U Epithel Cells (Auto) 17.0 H (0-13.0) /HPF Crossmatch See Detail 01/29/22 Range/Units 03:54 WBC (4.5-11.0) K/mm3 RBC (3.65-5.03) M/mm3 Hgb (10.1-14.3) gm/dl Hct (30.3-42.9) % MCV (79-97) fl MCH (28-32) pg RDW (13.2-15.2) % Plt Count (140-440) K/mm3 Seg Neuts % (Manual) (40.0-70.0) % Lymphocytes % (Manual) (13.4-35.0) % Monocytes % (Manual) (0.0-7.3) % Nucleated RBC % (0.0-0.9) % Seg Neutrophils # Man (1.8-7.7) K/mm3 Lymphocytes # (Manual) (1.2-5.4) K/mm3 Monocytes # (Manual) (0.0-0.8) K/mm3 PT (12.2-14.9) Sec. INR (0.87-1.13) Sodium (137-145) mmol/L Potassium 3.2 L (3.6-5.0) mmol/L Chloride (98-107) mmol/L Carbon Dioxide 17 L (22-30) mmol/L BUN 6 L (7-17) mg/dL Creatinine < 0.2 L (0.6-1.2) mg/dL Glucose 127 H (65-100) mg/dL Total Bilirubin 15.70 H (0.1-1.2) mg/dL AST 264 H (5-40) units/L ALT 141 H (7-56) units/L Alkaline Phosphatase 772 H (35-129) units/L Total Protein 5.6 L (6.3-8.2) g/dL Albumin 2.9 L (3.9-5) g/dL U Epithel Cells (Auto) (0-13.0) /HPF Crossmatch Diabetes panel 01/28/22 01/29/22 Range/Units 12:27 03:54 Sodium 131 L 137 (137-145) mmol/L Potassium 3.1 L 3.2 L (3.6-5.0) mmol/L Chloride 96.0 L 104.6 (98-107) mmol/L Carbon Dioxide 19 L 17 L (22-30) mmol/L BUN 8 6 L (7-17) mg/dL Creatinine < 0.2 L < 0.2 L (0.6-1.2) mg/dL Glucose 223 H 127 H (65-100) mg/dL Calcium 9.6 9.0 (8.4-10.2) mg/dL AST 246 H 264 H (5-40) units/L ALT 139 H 141 H (7-56) units/L Alkaline Phosphatase 798 H 772 H (35-129) units/L Total Protein 6.1 L 5.6 L (6.3-8.2) g/dL Albumin 3.3 L 2.9 L (3.9-5) g/dL Thyroid panel 01/28/22 Range/Units 12: TSH 1.900 (0.270-4.200) mlU/mL Calcium panel 01/28/22 01/29/22 Range/Units 12: 03:54 Calcium 9.6 9.0 (8.4-10.2) mg/dL Albumin 3.3 L 2.9 L (3.9-5) g/dL Pituitary panel 01/28/22 01/28/22 01/29/22 Range/Units 12: 12: 03:54 Sodium 131 L 137 (137-145) mmol/L Potassium 3.1 L 3.2 L (3.6-5.0) mmol/L Chloride 96.0 L 104.6 (98-107) mmol/L Carbon Dioxide 19 L 17 L (22-30) mmol/L BUN 8 6 L (7-17) mg/dL Creatinine < 0.2 L < 0.2 L (0.6-1.2) mg/dL Glucose 223 H 127 H (65-100) mg/dL Calcium 9.6 9.0 (8.4-10.2) mg/dL TSH 1.900 (0.270-4.200) mlU/mL Adrenal panel 01/28/22 01/29/22 Range/Units 12: 03:54 Sodium 131 L 137 (137-145) mmol/L Potassium 3.1 L 3.2 L (3.6-5.0) mmol/L Chloride 96.0 L 104.6 (98-107) mmol/L Carbon Dioxide 19 L 17 L (22-30) mmol/L BUN 8 6 L (7-17) mg/dL Creatinine < 0.2 L < 0.2 L (0.6-1.2) mg/dL Glucose 223 H 127 H (65-100) mg/dL Calcium 9.6 9.0 (8.4-10.2) mg/dL Total Bilirubin 17.30 H 15.70 H (0.1-1.2) mg/dL AST 246 H 264 H (5-40) units/L ALT 139 H 141 H (7-56) units/L Alkaline Phosphatase 798 H 772 H (35-129) units/L Total Protein 6.1 L 5.6 L (6.3-8.2) g/dL Albumin 3.3 L 2.9 L (3.9-5) g/dL - Imaging CT scan - abdomen: report reviewed CT scan - pelvis: report reviewed Assessment and Plan - Patient Problems (1) Pancreatic cancer Current Visit: Yes Status: Acute Qualifiers: Pancreatic malignancy location: head of pancreas Qualified Code(s): C25.0 - Malignant neoplasm of head of pancreas Plan to address problem: 1) I believe palliative management is this pt's only option. However, I will discuss her case with a hepatobiliary surgeon at [place] to see if there are any surgical options. In the meantime, I agree with the plan as set forth by Dr Saez of GI.
[2022-01-29] MEDS ORDERED: POTASSIUM CHLORIDE 10 MEQ 10 MEQ/100 ML BAG IV SCH (14:00)
[2022-01-30] MEDS: hydrALAZINE 20 MG/1 ML INJ IV PRN (05:17)
[2022-01-30 06:01] LABS: Hematocrit 25.5 % (30.3-42.9); Hemoglobin 8.7 gm/dl (10.1-14.3); Mean Corpuscular HGB Conc 34 % (30-34); Mean Corpuscular Volume 82 fl (79-97); Platelet Count 449 K/mm3 (140-440); Red Blood Count 3.12 M/mm3 (3.65-5.03); Red Cell Distribution Width 18.1 % (13.2-15.2)
[2022-01-30 06:05] LABS: Alanine Aminotransferase 130 units/L (7-56); Albumin 2.7 g/dL (3.9-5); BUN/Creatinine Ratio 20; Blood Urea Nitrogen 4 mg/dL (7-17); Calcium 8.9 mg/dL (8.4-10.2); Hemolysis Index 1
[2022-01-30 07:01] LABS: Anisocytosis 1+; Basophils % (Manual) 0 % (0.0-1.8); Hypochromasia 1+; Platelet Estimate Consistent w Auto; Total Cells Counted 100
[2022-01-30] MEDS: HEPARIN 5,000 UNIT/1 ML VIAL SUB-Q SCH ×2 (09:17→21:48)
[2022-01-30] MEDS: levETIRAcetam 500 MG in DEXTROSE 5% IN WATER 100 ML IV SCH ×2 (09:17→21:48)
[2022-01-30] MEDS: D5W/0.9% NACL 1,000 ML IV SCH (09:22)
--- NOTE | 2022-01-30 11:35 | Progress Note ---
Assessment and Plan Assessment and plan: #Chronic symptomatic anemia Hemoglobin 6.8 status post transfusion of 2 units packed RBCs (5.3 on admission) Transfusing additional 1 unit packed RBC Transfuse if hemoglobin less than 7 or patient becomes symptomatic #Leukocytosis WBC 13 (on presentation 11.5) Unclear etiology; however, less likely to be infectious in nature. Continue to monitor. #Pancreatic mass #Biliary obstruction secondary to pancreatic mass #Concern for pancreatic cancer #Hyperbilirubinemia #Obstructive jaundice #Elevated transaminases Total bilirubin 15.7, AST 264, ALT 141, alkaline phosphatase 772 CT abdomen/pelvis revealing "Marked intra and extrahepatic biliary ductal dilatation with obstruction of the common bile duct with large mass in the shiv on of the pancreatic head measuring 5.3 x 5.2 cm. Severe stenosis and narrowing of the portal vein. Adenopathy in the upper abdomen. Findings suggesting pancreatic malignancy with metastatic harriett disease. Pancreatic ductal dilatation is identified. Marked gallbladder distention with fluid surrounding the gallbladder secondary to obstructive change." Gastroenterology consulted; appreciate recs General surgery consulted; appreciate recs Discussion was had with [facility] about possible transfer if accepted (must be approved given the fact the patient is self-pay). Dr. Staton (he patobiliary surgeon) expressed desire to accept patient. Pending review and possible approval on 01/31/2022 Anticipating ERCP to alleviate biliary obstruction, and biopsy with IR (if amendable) early next week. #Severe protein caloric malnutrition Albumin 2.9 Nutrition consulted; pending recs. Starting dietary supplements. #Hypokalemia Potassium 3.2 Repleting. Continue to monitor. #Hyponatremiaresolved Sodium 131--> 137 Discussion: Detailed discussion with the patient's mother, stepfather, and fianc by the patient's overall condition and the heightened concern for metastatic pancreatic cancer. The course of action was discussed regarding needing to obtain a tissue biopsy and ERCP with stent to relieve the obstruction. The overall prognosis was explained should the patient be found to have pancreatic cancer. The patient and her family expressed understanding. Time: +30 minutes #Advanced care planning -Disease education conducted, care plan discussed, diagnoses discussed, prognosis discussed, and patient acknowledges understanding with care plan -Time: +60 min Disposition Plan: Continue medical management Total Time Spent with Patient (Minutes): 60 minutes History Interval history: No acute events overnight. Hospitalist Physical - Constitutional Vitals: Temp Pulse Resp BP Pulse Ox 98.7 F 101 H 18 128/72 100 01/30/22 07:58 01/30/22 10:41 01/30/22 10:41 01/30/22 07:58 01/30/22 10:41 General appearance: Present: mild distress, cachectic, other (Jaundice) - EENT Eyes: Present: PERRL, EOM intact ENT: hearing intact, clear oral mucosa, dentition normal - Neck Neck: Present: supple, normal ROM - Respiratory Respiratory effort: normal Respiratory: bilateral: CTA - Cardiovascular Rhythm: regular Heart Sounds: Present: S1 & S2 - Extremities Extremities: no ischemia, pulses intact, pulses symmetrical, No edema, normal temperature, normal color, Full ROM Peripheral Pulses: within normal limits - Abdominal General gastrointestinal: soft, tender, non-distended, normal bowel sounds Localized gastrointestinal: tender: diffuse - Integumentary Integumentary: Present: clear, warm, dry, jaundice - Psychiatric Psychiatric: appropriate mood/affect, intact judgment & insight, memory intact, cooperative, agitated - Neurologic Neurologic: CNII-XII intact, moves all extremities - Allied Health Allied health notes reviewed: nursing HEART Score - HEART Score Troponin: Troponin T < 0.010 ng/mL (0.00-0.029) 01/28/22 12:27 Results - Labs CBC & Chem 7: 01/30/22 05:24 01/30/22 05:24 Labs: Laboratory Last Values WBC 10.8 K/mm3 (4.5-11.0) 01/30/22 05:24 RBC 3.12 M/mm3 (3.65-5.03) L 01/30/22 05:24 Hgb 8.7 gm/dl (10.1-14.3) L 01/30/22 05:24 Hct 25.5 % (30.3-42.9) L 01/30/22 05:24 MCV 82 fl (79-97) 01/30/22 05:24 MCH 28 pg (28-32) 01/30/22 05:24 MCHC 34 % (30-34) 01/30/22 05:24 RDW 18.1 % (13.2-15.2) H 01/30/22 05:24 Plt Count 449 K/mm3 (140-440) H 01/30/22 05:24 Lymph % (Auto) [employer] 01/30/22 05:24 [place] % (Auto) [employer] 01/29/22 03:54 Eos % (Auto) [employer] 01/28/22 12:27 Baso % (Auto) [employer] 01/28/22 12:27 Lymph # (Auto) [employer] 01/30/22 05:24 [place] # (Auto) [employer] 01/28/22 12:27 Eos # (Auto) [employer] 01/28/22 12:27 Baso # (Auto) [employer] 01/28/22 12:27 Add Manual Diff Complete 01/30/22 05:24 Total Counted 100 01/30/22 05:24 Seg Neutrophils % [employer] 01/30/22 05:24 Seg Neuts % (Manual) 67.0 % (40.0-70.0) 01/30/22 05:24 Band Neutrophils % 0 % 01/30/22 05:24 Lymphocytes % (Manual) 24.0 % (13.4-35.0) 01/30/22 05:24 Reactive Lymphs % (Man) 0 % 01/30/22 05:24 Monocytes % (Manual) 6.0 % (0.0-7.3) 01/30/22 05:24 Eosinophils % (Manual) 3.0 % (0.0-4.3) 01/30/22 05:24 Basophils % (Manual) 0 % (0.0-1.8) 01/30/22 05:24 Metamyelocytes % 0 % 01/30/22 05:24 Myelocytes % 0 % 01/30/22 05:24 Promyelocytes % 0 % 01/30/22 05:24 Blast Cells % 0 % 01/30/22 05:24 Nucleated RBC % 2.0 % (0.0-0.9) H 01/30/22 05:24 Seg Neutrophils # [employer] 01/28/22 12:27 Seg Neutrophils # Man 7.2 K/mm3 (1.8-7.7) 01/30/22 05:24 Band Neutrophils # 0.0 K/mm3 01/30/22 05:24 Lymphocytes # (Manual) 2.6 K/mm3 (1.2-5.4) 01/30/22 05:24 Abs React Lymphs (Man) 0.0 K/mm3 01/30/22 05:24 Monocytes # (Manual) 0.6 K/mm3 (0.0-0.8) 01/30/22 05:24 Eosinophils # (Manual) 0.3 K/mm3 (0.0-0.4) 01/30/22 05:24 Basophils # (Manual) 0.0 K/mm3 (0.0-0.1) 01/30/22 05:24 Metamyelocytes # 0.0 K/mm3 01/30/22 05:24 Myelocytes # 0.0 K/mm3 01/30/22 05:24 Promyelocytes # 0.0 K/mm3 01/30/22 05:24 Blast Cells # 0.0 K/mm3 01/30/22 05:24 WBC Morphology Not Reportable 01/30/22 05:24 Hypersegmented Neuts Not Reportable 01/30/22 05:24 Hyposegmented Neuts Not Reportable 01/30/22 05:24 Hypogranular Neuts Not Reportable 01/30/22 05:24 Smudge Cells Not Reportable 01/30/22 05:24 Toxic Granulation Not Reportable 01/30/22 05:24 Toxic Vacuolation Not Reportable 01/30/22 05:24 Dohle Bodies Not Reportable 01/30/22 05:24 Pelger-Huet Anomaly Not Reportable 01/30/22 05:24 Trevor Rods Not Reportable 01/30/22 05:24 Platelet Estimate Consistent w auto 01/30/22 05:24 Clumped Platelets Not Reportable 01/30/22 05:24 Plt Clumps, EDTA Not Reportable 01/30/22 05:24 Large Platelets Not Reportable 01/30/22 05:24 Giant Platelets Not Reportable 01/30/22 05:24 Platelet Satelliting Not Reportable 01/30/22 05:24 Plt Morphology Comment Not Reportable 01/30/22 05:24 RBC Morphology Not Reportable 01/30/22 05:24 Dimorphic RBCs Not Reportable 01/30/22 05:24 Polychromasia Not Reportable 01/30/22 05:24 Hypochromasia 1+ 01/30/22 05:24 Poikilocytosis Not Reportable 01/30/22 05:24 Anisocytosis 1+ 01/30/22 05:24 Microcytosis Not Reportable 01/30/22 05:24 Macrocytosis Not Reportable 01/30/22 05:24 Spherocytes Not Reportable 01/30/22 05:24 Pappenheimer Bodies Not Reportable 01/30/22 05:24 Sickle Cells Not Reportable 01/30/22 05:24 Target Cells Not Reportable 01/30/22 05:24 Tear Drop Cells Not Reportable 01/30/22 05:24 Ovalocytes Not Reportable 01/30/22 05:24 Stomatocytes Few 01/28/22 12:27 Helmet Cells Not Reportable 01/30/22 05:24 Loz[place] Bodies Not Reportable 01/30/22 05:24 [place] Rings Not Reportable 01/30/22 05:24 [place] Cells Not Reportable 01/30/22 05:24 Bite Cells Not Reportable 01/30/22 05:24 Crenated Cell Not Reportable 01/30/22 05:24 Elliptocytes Not Reportable 01/30/22 05:24 Acanthocytes (Spur) Not Reportable 01/30/22 05:24 Rouleaux Not Reportable 01/30/22 05:24 Hemoglobin C Crystals Not Reportable 01/30/22 05:24 Schistocytes Not Reportable 01/30/22 05:24 Malaria parasites Not Reportable 01/30/22 05:24 Robby Bodies Not Reportable 01/30/22 05:24 Hem Pathologist Commnt No 01/30/22 05:24 PT 15.9 Sec. (12.2-14.9) H 01/28/22 12:27 INR 1.14 (0.87-1.13) H 01/28/22 12:27 APTT 32.5 Sec. (24.2-36.6) 01/28/22 12:27 Sodium 137 mmol/L (137-145) 01/30/22 05:24 Potassium 3.8 mmol/L (3.6-5.0) 01/30/22 05:24 Chloride 108.5 mmol/L (98-107) H 01/30/22 05:24 Carbon Dioxide 17 mmol/L (22-30) L 01/30/22 05:24 Anion Gap 15 mmol/L 01/30/22 05:24 BUN 4 mg/dL (7-17) L 01/30/22 05:24 Creatinine < 0.2 mg/dL (0.6-1.2) L 01/30/22 05:24 Estimated GFR > 60 ml/min 01/30/22 05:24 BUN/Creatinine Ratio 20 % 01/30/22 05:24 Glucose 110 mg/dL (65-100) H 01/30/22 05:24 Calcium 8.9 mg/dL (8.4-10.2) 01/30/22 05:24 Magnesium 1.80 mg/dL (1.7-2.3) 01/28/22 12:27 Total Bilirubin 15.20 mg/dL (0.1-1.2) H 01/30/22 05:24 AST 216 units/L (5-40) H 01/30/22 05:24 ALT 130 units/L (7-56) H 01/30/22 05:24 Alkaline Phosphatase 731 units/L (35-129) H 01/30/22 05:24 Ammonia 28.0 umol/L (25-60) 01/28/22 15:36 Troponin T < 0.010 ng/mL (0.00-0.029) 01/28/22 12:27 NT-Pro-B Natriuret Pep 33.37 pg/mL (0-900) 01/28/22 12:27 Total Protein 5.3 g/dL (6.3-8.2) L 01/30/22 05:24 Albumin 2.7 g/dL (3.9-5) L 01/30/22 05:24 Albumin/Globulin Ratio 1.0 % 01/30/22 05:24 TSH 1.900 mlU/mL (0.270-4.200) 01/28/22 12:27 Urine Color [place] (Yellow) 01/28/22 15:07 Urine Turbidity Clear (Clear) 01/28/22 15:07 Urine pH 7.0 (5.0-7.0) 01/28/22 15:07 Ur Specific [place] 1.006 (1.003-1.030) 01/28/22 15:07 Urine Protein <15 mg/dl mg/dL (Negative) 01/28/22 15:07 Urine Glucose (UA) 150 mg/dL (Negative) 01/28/22 15:07 Urine Ketones Neg mg/dL (Negative) 01/28/22 15:07 Urine Blood Mod (Negative) 01/28/22 15:07 Urine Nitrite Neg (Negative) 01/28/22 15:07 Urine Bilirubin Mod (Negative) 01/28/22 15:07 Urine Ictotest Not Reportable 01/28/22 15:07 Urine Urobilinogen 4.0 mg/dL (<2.0) 01/28/22 15:07 Ur Leukocyte Esterase Tr (Negative) 01/28/22 15:07 Urine WBC (Auto) 3.0 /HPF (0.0-6.0) 01/28/22 15:07 Urine RBC (Auto) 52.0 /HPF (0.0-6.0) 01/28/22 15:07 U Epithel Cells (Auto) 17.0 /HPF (0-13.0) H 01/28/22 15:07 Urine Bacteria (Auto) 2+ /HPF (Negative) 01/28/22 15:07 Urine Mucus Few /HPF 01/28/22 15:07 Urine Opiates Screen Presumptive negative 01/28/22 15:07 Urine Methadone Screen Presumptive negative 01/28/22 15:07 Ur Barbiturates Screen Presumptive negative 01/28/22 15:07 Ur Phencyclidine Scrn Presumptive negative 01/28/22 15:07 Ur Amphetamines Screen Presumptive negative 01/28/22 15:07 U Benzodiazepines Scrn Presumptive negative 01/28/22 15:07 Urine Cocaine Screen Presumptive negative 01/28/22 15:07 U Marijuana (THC) Screen Presumptive negative 01/28/22 15:07 Drugs of Abuse Note Disclamer 01/28/22 15:07 Hepatitis A IgM Ab Non-reactive (NonReactive) 01/28/22 15:42 Hep Bs Antigen Non-reactive (Negative) 01/28/22 15:42 Hep B Core IgM Ab Non-reactive (NonReactive) 01/28/22 15:42 Hepatitis C Antibody Non-reactive (NonReactive) 01/28/22 15:42 Blood Type A POSITIVE 01/28/22 15:44 Antibody Screen Negative 01/28/22 15:44 Crossmatch See Detail 01/28/22 15:44 Microbiology: Microbiology 01/29/22 11:11 Peripheral/Venous Blood Culture - Preliminary Culture in Progress 01/29/22 10:59 Peripheral/Venous Blood Culture - Preliminary Culture in Progress Soto/IV: Voiding Method Toilet Active Medications - Current Medications Current Medications: Generic Name Dose Route Start Last Admin Trade Name Freq PRN Reason Stop Dose Admin Acetaminophen 650 mg 01/28/22 20:58 01/29/22 14:36 Acetaminophen 325 Mg Tab PO 650 mg Q4H PRN Administration Pain MILD(1-3)/Fever >100.5/TAMAYO Heparin Sodium (Porcine) 5,000 unit 01/28/22 22:00 01/30/22 09:17 Heparin 5,000 Unit/1 Ml Vial SUB-Q 5,000 unit Q12HR RAE Administration Hydralazine HCl 10 mg 01/29/22 01:56 01/30/22 05:17 Hydralazine 20 Mg/1 Ml Inj IV 10 mg Q6HR PRN Administration Hypertension Hydromorphone HCl 0.5 mg 01/28/22 20:58 01/30/22 06:45 Hydromorphone 1 Mg/1 Ml Inj IV 0.5 mg Q3H PRN Administration Pain , Severe (7-10) Dextrose/Sodium Chloride 1,000 mls @ 75 mls/hr 01/28/22 21:00 01/30/22 09:22 D5ns IV 75 mls/hr DIRECT RAE Administration Levetiracetam 500 mg/ Dextrose 105 mls @ 400 mls/hr 01/29/22 10:00 01/30/22 09:17 IV 400 mls/hr Q12HR RAE Administration Lorazepam 2 mg 01/28/22 17:45 Lorazepam 2 Mg/Ml Vial IV Q1HR PRN CIWA-Ar 8-15 Lorazepam 4 mg 01/28/22 17:45 Lorazepam 2 Mg/Ml Vial IV Q1HR PRN CIWA-Ar 16-25 Morphine Sulfate 2 mg 01/28/22 20:58 Morphine 2 Mg/1 Ml Inj IV Q4H PRN Pain, Moderate (4-6) Ondansetron HCl 4 mg 01/28/22 20:58 Ondansetron 4 Mg/2 Ml Inj IV Q8H PRN Nausea And Vomiting Oxycodone/Acetaminophen 1 tab 01/28/22 20:58 Oxycodone /Acetaminophen 5-325mg Tab PO Q6H PRN Pain, Moderate (4-6) Sodium Chloride 10 ml 01/28/22 22:00 01/30/22 09:18 Sodium Chloride 0.9% 10 Ml Flush Syringe IV 10 ml BID RAE Administration Sodium Chloride 10 ml 01/28/22 20:58 Sodium Chloride 0.9% 10 Ml Flush Syringe IV PRN PRN LINE FLUSH
--- NOTE | 2022-01-30 11:40 | Gastroenterology Progress Note ---
Assessment and Plan Abnormal CT pancreas Obstructive jaundice Abnormal liver enzymes Elevated alkaline phosphatase Elevated bilirubin Epigastric abdominal pain Weight loss Pruritus Patient with presentation highly concerning for metastatic pancreatic malign harriet. She does not appear to have cholangitis however she is having significant symptoms from her obstructive jaundice therefore I am reaching out to advanced endoscopy team to see if a stent can be placed for palliation of her symptoms. Regarding pruritus likely due to her severe cholestasis will initiate therapy to attempt to help with her symptom with cholestyramine and anti-histamines Subjective Date of service: 01/30/22 Principal diagnosis: Obstructive jaundice Interval history: Patient reports still with epigastric abdominal pain sharp stable steady moderate associated decreased appetite and jaundice and diffuse pruritus Objective - Constitutional Vitals: Temp Pulse Resp BP Pulse Ox 98.7 F 101 H 18 128/72 100 01/30/22 07:58 01/30/22 10:41 01/30/22 10:41 01/30/22 07:58 01/30/22 10:41 General appearance: no acute distress - EENT Eyes: scleral icterus ENT: hearing intact - Neck Neck: supple - Respiratory Respiratory effort: normal - Cardiovascular Rhythm: regular - Gastrointestinal General gastrointestinal: Present: soft, tender, normal bowel sounds - Integumentary Integumentary: Present: jaundice - Musculoskeletal Musculoskeletal: normal - Neurologic Neurological: alert and oriented x3 - Psychiatric Psychiatric: appropriate mood/affect - Labs CBC & Chem 7: 01/30/22 05:24 01/30/22 05:24 Labs: Laboratory Results - last 24 hr 01/28/22 01/30/22 01/30/22 15:44 05:24 05:24 WBC 10.8 RBC 3.12 L Hgb 8.7 L Hct 25.5 L MCV 82 MCH 28 MCHC 34 RDW 18.1 H Plt Count 449 H Lymph % (Auto) [place] Drawer Lymph # (Auto) [place] Drawer Add Manual Diff Complete Total Counted 100 Seg Neutrophils % [place] Drawer Seg Neuts % (Manual) 67.0 Band Neutrophils % 0 Lymphocytes % (Manual) 24.0 Reactive Lymphs % (Man) 0 Monocytes % (Manual) 6.0 Eosinophils % (Manual) 3.0 Basophils % (Manual) 0 Metamyelocytes % 0 Myelocytes % 0 Promyelocytes % 0 Blast Cells % 0 Nucleated RBC % 2.0 H Seg Neutrophils # Man 7.2 Band Neutrophils # 0.0 Lymphocytes # (Manual) 2.6 Abs React Lymphs (Man) 0.0 Monocytes # (Manual) 0.6 Eosinophils # (Manual) 0.3 Basophils # (Manual) 0.0 Metamyelocytes # 0.0 Myelocytes # 0.0 Promyelocytes # 0.0 Blast Cells # 0.0 WBC Morphology Not Reportable Hypersegmented Neuts Not Reportable Hyposegmented Neuts Not Reportable Hypogranular Neuts Not Reportable Smudge Cells Not Reportable Toxic Granulation Not Reportable Toxic Vacuolation Not Reportable Dohle Bodies Not Reportable Pelger-Huet Anomaly Not Reportable Trevor Rods Not Reportable Platelet Estimate Consistent w auto Clumped Platelets Not Reportable Plt Clumps, EDTA Not Reportable Large Platelets Not Reportable Giant Platelets Not Reportable Platelet Satelliting Not Reportable Plt Morphology Comment Not Reportable RBC Morphology Not Reportable Dimorphic RBCs Not Reportable Polychromasia Not Reportable Hypochromasia 1+ Poikilocytosis Not Reportable Anisocytosis 1+ Microcytosis Not Reportable Macrocytosis Not Reportable Spherocytes Not Reportable Pappenheimer Bodies Not Reportable Sickle Cells Not Reportable Target Cells Not Reportable Tear Drop Cells Not Reportable Ovalocytes Not Reportable Helmet Cells Not Reportable Lozoya-[place] Bodies Not Reportable [place] Rings Not Reportable Pia Cells Not Reportable Bite Cells Not Reportable Crenated Cell Not Reportable Elliptocytes Not Reportable Acanthocytes (Spur) Not Reportable Rouleaux Not Reportable Hemoglobin C Crystals Not Reportable Schistocytes Not Reportable Malaria parasites Not Reportable Robby Bodies Not Reportable Hem Pathologist Commnt No Sodium 137 Potassium 3.8 Chloride 108.5 H Carbon Dioxide 17 L Anion Gap 15 BUN 4 L Creatinine < 0.2 L Estimated GFR > 60 BUN/Creatinine Ratio 20 Glucose 110 H Calcium 8.9 Total Bilirubin 15.20 H AST 216 H ALT 130 H Alkaline Phosphatase 731 H Total Protein 5.3 L Albumin 2.7 L Albumin/Globulin Ratio 1.0 Blood Type A POSITIVE Antibody Screen Negative Crossmatch See Detail
--- NOTE | 2022-01-30 11:42 | Progress Note ---
Assessment and Plan Assessment and plan: #Chronic symptomatic anemiastable Hemoglobin 6.8 status post transfusion of 2 units packed RBCs (5.3 on admission) Transfusing additional 1 unit packed RBC Transfuse if hemoglobin less than 7 or patient becomes symptomatic #Leukocytosisresolved WBC 13 (on presentation 11.5) Unclear etiology; however, less likely to be infectious in nature. Continue to monitor. #Pancreatic mass #Biliary obstruction secondary to pancreatic mass #Concern for pancreatic cancer #Hyperbilirubinemia #Obstructive jaundice #Elevated transaminases Total bilirubin 15.7, AST 264, ALT 141, alkaline phosphatase 772 CT abdomen/pelvis revealing "Marked intra and extrahepatic biliary ductal dilatation with obstruction of the common bile duct with large mass in the region of the pancreatic head measuring 5.3 x 5.2 cm. Severe stenosis and narrowing of the portal vein. Adenopathy in the upper abdomen. Findings suggesting pancreatic malignancy with metastatic harriett disease. Pancreatic ductal dilatation is identified. Marked gallbladder distention with fluid surrounding the gallbladder secondary to obstructive change." Gastroenterology consulted; appreciate recs General surgery consulted; appreciate recs Discussion was had with [facility] about possible transfer if accepted (must be approved given the fact the patient is self-pay). Dr. Staton (hepatobiliary surgeon) expressed desire to accept patient. Pending review and possible approval on 01/31/2022 Anticipating ERCP to alleviate biliary obstruction, and biopsy with IR (if amendable) early next week. #Severe protein caloric malnutrition Albumin 2.9 Nutrition consulted; pending recs. Starting dietary supplements. #Hypokalemiaresolved Potassium 3.2 Repleting. Continue to monitor. #Hyponatremiaresolved Sodium 131--> 137 #Advanced care planning -Disease education conducted, care plan discussed, diagnoses discussed, prognosis discussed, and patient acknowledges understanding with care plan -Time: +30 min Disposition Plan: Continue medical management Total Time Spent with Patient (Minutes): 30 minutes History Interval history: No acute events overnight. Hospitalist Physical - Constitutional Vitals: Temp Pulse Resp BP Pulse Ox 98.7 F 101 H 18 128/72 100 01/30/22 07:58 01/30/22 10:41 01/30/22 10:41 01/30/22 07:58 01/30/22 10:41 General appearance: Present: no acute distress, cachectic, other (Jaundice) - EENT Eyes: Present: PERRL, EOM intact ENT: hearing intact, clear oral mucosa, dentition normal - Neck Neck: Present: supple, normal ROM - Respiratory Respiratory effort: normal Respiratory: bilateral: CTA - Cardiovascular Rhythm: regular Heart Sounds: Present: S1 & S2 - Extremities Extremities: no ischemia, pulses intact, pulses symmetrical, No edema, normal temperature, normal color, Full ROM Peripheral Pulses: within normal limits - Abdominal General gastrointestinal: soft, tender, non-distended, normal bowel sounds Localized gastrointestinal: tender: diffuse - Integumentary Integumentary: Present: clear, warm, dry, jaundice - Psychiatric Psychiatric: appropriate mood/affect, intact judgment & insight, memory intact, cooperative, depressed - Neurologic Neurologic: CNII-XII intact, moves all extremities - Allied Health Allied health notes reviewed: nursing HEART Score - HEART Score Troponin: Troponin T < 0.010 ng/mL (0.00-0.029) 01/28/22 12:27 Results - Labs CBC & Chem 7: 01/30/22 05:24 01/30/22 05:24 Labs: Laboratory Last Values WBC 10.8 K/mm3 (4.5-11.0) 01/30/22 05:24 RBC 3.12 M/mm3 (3.65-5.03) L 01/30/22 05:24 Hgb 8.7 gm/dl (10.1-14.3) L 01/30/22 05:24 Hct 25.5 % (30.3-42.9) L 01/30/22 05:24 MCV 82 fl (79-97) 01/30/22 05:24 MCH 28 pg (28-32) 01/30/22 05:24 MCHC 34 % (30-34) 01/30/22 05:24 RDW 18.1 % (13.2-15.2) H 01/30/22 05:24 Plt Count 449 K/mm3 (140-440) H 01/30/22 05:24 Lymph % (Auto) Sales Support Advisor 01/30/22 05:24 [place] % (Auto) Sales Support Advisor 01/29/22 03:54 Eos % (Auto) Sales Support Advisor 01/28/22 12:27 Baso % (Auto) Sales Support Advisor 01/28/22 12:27 Lymph # (Auto) Sales Support Advisor 01/30/22 05:24 [place] # (Auto) Sales Support Advisor 01/28/22 12:27 Eos # (Auto) Sales Support Advisor 01/28/22 12:27 Baso # (Auto) Sales Support Advisor 01/28/22 12:27 Add Manual Diff Complete 01/30/22 05:24 Total Counted 100 01/30/22 05:24 Seg Neutrophils % Sales Support Advisor 01/30/22 05:24 Seg Neuts % (Manual) 67.0 % (40.0-70.0) 01/30/22 05:24 Band Neutrophils % 0 % 01/30/22 05:24 Lymphocytes % (Manual) 24.0 % (13.4-35.0) 01/30/22 05:24 Reactive Lymphs % (Man) 0 % 01/30/22 05:24 Monocytes % (Manual) 6.0 % (0.0-7.3) 01/30/22 05:24 Eosinophils % (Manual) 3.0 % (0.0-4.3) 01/30/22 05:24 Basophils % (Manual) 0 % (0.0-1.8) 01/30/22 05:24 Metamyelocytes % 0 % 01/30/22 05:24 Myelocytes % 0 % 01/30/22 05:24 Promyelocytes % 0 % 01/30/22 05:24 Blast Cells % 0 % 01/30/22 05:24 Nucleated RBC % 2.0 % (0.0-0.9) H 01/30/22 05:24 Seg Neutrophils # Sales Support Advisor 01/28/22 12:27 Seg Neutrophils # Man 7.2 K/mm3 (1.8-7.7) 01/30/22 05:24 Band Neutrophils # 0.0 K/mm3 01/30/22 05:24 Lymphocytes # (Manual) 2.6 K/mm3 (1.2-5.4) 01/30/22 05:24 Abs React Lymphs (Man) 0.0 K/mm3 01/30/22 05:24 Monocytes # (Manual) 0.6 K/mm3 (0.0-0.8) 01/30/22 05:24 Eosinophils # (Manual) 0.3 K/mm3 (0.0-0.4) 01/30/22 05:24 Basophils # (Manual) 0.0 K/mm3 (0.0-0.1) 01/30/22 05:24 Metamyelocytes # 0.0 K/mm3 01/30/22 05:24 Myelocytes # 0.0 K/mm3 01/30/22 05:24 Promyelocytes # 0.0 K/mm3 01/30/22 05:24 Blast Cells # 0.0 K/mm3 01/30/22 05:24 WBC Morphology Not Reportable 01/30/22 05:24 Hypersegmented Neuts Not Reportable 01/30/22 05:24 Hyposegmented Neuts Not Reportable 01/30/22 05:24 Hypogranular Neuts Not Reportable 01/30/22 05:24 Smudge Cells Not Reportable 01/30/22 05:24 Toxic Granulation Not Reportable 01/30/22 05:24 Toxic Vacuolation Not Reportable 01/30/22 05:24 Dohle Bodies Not Reportable 01/30/22 05:24 Pelger-Huet Anomaly Not Reportable 01/30/22 05:24 Trevor Rods Not Reportable 01/30/22 05:24 Platelet Estimate Consistent w auto 01/30/22 05:24 Clumped Platelets Not Reportable 01/30/22 05:24 Plt Clumps, EDTA Not Reportable 01/30/22 05:24 Large Platelets Not Reportable 01/30/22 05:24 Giant Platelets Not Reportable 01/30/22 05:24 Platelet Satelliting Not Reportable 01/30/22 05:24 Plt Morphology Comment Not Reportable 01/30/22 05:24 RBC Morphology Not Reportable 01/30/22 05:24 Dimorphic RBCs Not Reportable 01/30/22 05:24 Polychromasia Not Reportable 01/30/22 05:24 Hypochromasia 1+ 01/30/22 05:24 Poikilocytosis Not Reportable 01/30/22 05:24 Anisocytosis 1+ 01/30/22 05:24 Microcytosis Not Reportable 01/30/22 05:24 Macrocytosis Not Reportable 01/30/22 05:24 Spherocytes Not Reportable 01/30/22 05:24 Pappenheimer Bodies Not Reportable 01/30/22 05:24 Sickle Cells Not Reportable 01/30/22 05:24 Target Cells Not Reportable 01/30/22 05:24 Tear Drop Cells Not Reportable 01/30/22 05:24 Ovalocytes Not Reportable 01/30/22 05:24 Stomatocytes Few 01/28/22 12:27 Helmet Cells Not Reportable 01/30/22 05:24 Lozoya-[place] Bodies Not Reportable 01/30/22 05:24 [place] Rings Not Reportable 01/30/22 05:24 [place] Cells Not Reportable 01/30/22 05:24 Bite Cells Not Reportable 01/30/22 05:24 Crenated Cell Not Reportable 01/30/22 05:24 Elliptocytes Not Reportable 01/30/22 05:24 Acanthocytes (Spur) Not Reportable 01/30/22 05:24 Rouleaux Not Reportable 01/30/22 05:24 Hemoglobin C Crystals Not Reportable 01/30/22 05:24 Schistocytes Not Reportable 01/30/22 05:24 Malaria parasites Not Reportable 01/30/22 05:24 Robby Bodies Not Reportable 01/30/22 05:24 Hem Pathologist Commnt No 01/30/22 05:24 PT 15.9 Sec. (12.2-14.9) H 01/28/22 12:27 INR 1.14 (0.87-1.13) H 01/28/22 12:27 APTT 32.5 Sec. (24.2-36.6) 01/28/22 12:27 Sodium 137 mmol/L (137-145) 01/30/22 05:24 Potassium 3.8 mmol/L (3.6-5.0) 01/30/22 05:24 Chloride 108.5 mmol/L (98-107) H 01/30/22 05:24 Carbon Dioxide 17 mmol/L (22-30) L 01/30/22 05:24 Anion Gap 15 mmol/L 01/30/22 05:24 BUN 4 mg/dL (7-17) L 01/30/22 05:24 Creatinine < 0.2 mg/dL (0.6-1.2) L 01/30/22 05:24 Estimated GFR > 60 ml/min 01/30/22 05:24 BUN/Creatinine Ratio 20 % 01/30/22 05:24 Glucose 110 mg/dL (65-100) H 01/30/22 05:24 Calcium 8.9 mg/dL (8.4-10.2) 01/30/22 05:24 Magnesium 1.80 mg/dL (1.7-2.3) 01/28/22 12:27 Total Bilirubin 15.20 mg/dL (0.1-1.2) H 01/30/22 05:24 AST 216 units/L (5-40) H 01/30/22 05:24 ALT 130 units/L (7-56) H 01/30/22 05:24 Alkaline Phosphatase 731 units/L (35-129) H 01/30/22 05:24 Ammonia 28.0 umol/L (25-60) 01/28/22 15:36 Troponin T < 0.010 ng/mL (0.00-0.029) 01/28/22 12:27 NT-Pro-B Natriuret Pep 33.37 pg/mL (0-900) 01/28/22 12:27 Total Protein 5.3 g/dL (6.3-8.2) L 01/30/22 05:24 Albumin 2.7 g/dL (3.9-5) L 01/30/22 05:24 Albumin/Globulin Ratio 1.0 % 01/30/22 05:24 TSH 1.900 mlU/mL (0.270-4.200) 01/28/22 12:27 Urine Color [place] (Yellow) 01/28/22 15:07 Urine Turbidity Clear (Clear) 01/28/22 15:07 Urine pH 7.0 (5.0-7.0) 01/28/22 15:07 Ur Specific [place] 1.006 (1.003-1.030) 01/28/22 15:07 Urine Protein <15 mg/dl mg/dL (Negative) 01/28/22 15:07 Urine Glucose (UA) 150 mg/dL (Negative) 01/28/22 15:07 Urine Ketones Neg mg/dL (Negative) 01/28/22 15:07 Urine Blood Mod (Negative) 01/28/22 15:07 Urine Nitrite Neg (Negative) 01/28/22 15:07 Urine Bilirubin Mod (Negative) 01/28/22 15:07 Urine Ictotest Not Reportable 01/28/22 15:07 Urine Urobilinogen 4.0 mg/dL (<2.0) 01/28/22 15:07 Ur Leukocyte Esterase Tr (Negative) 01/28/22 15:07 Urine WBC (Auto) 3.0 /HPF (0.0-6.0) 01/28/22 15:07 Urine RBC (Auto) 52.0 /HPF (0.0-6.0) 01/28/22 15:07 U Epithel Cells (Auto) 17.0 /HPF (0-13.0) H 01/28/22 15:07 Urine Bacteria (Auto) 2+ /HPF (Negative) 01/28/22 15:07 Urine Mucus Few /HPF 01/28/22 15:07 Urine Opiates Screen Presumptive negative 01/28/22 15:07 Urine Methadone Screen Presumptive negative 01/28/22 15:07 Ur Barbiturates Screen Presumptive negative 01/28/22 15:07 Ur Phencyclidine Scrn Presumptive negative 01/28/22 15:07 Ur Amphetamines Screen Presumptive negative 01/28/22 15:07 U Benzodiazepines Scrn Presumptive negative 01/28/22 15:07 Urine Cocaine Screen Presumptive negative 01/28/22 15:07 U Marijuana (THC) Screen Presumptive negative 01/28/22 15:07 Drugs of Abuse Note Disclamer 01/28/22 15:07 Hepatitis A IgM Ab Non-reactive (NonReactive) 01/28/22 15:42 Hep Bs Antigen Non-reactive (Negative) 01/28/22 15:42 Hep B Core IgM Ab Non-reactive (NonReactive) 01/28/22 15:42 Hepatitis C Antibody Non-reactive (NonReactive) 01/28/22 15:42 Blood Type A POSITIVE 01/28/22 15:44 Antibody Screen Negative 01/28/22 15:44 Crossmatch See Detail 01/28/22 15:44 Microbiology: Microbiology 01/29/22 11:11 Peripheral/Venous Blood Culture - Preliminary Culture in Progress 01/29/22 10:59 Peripheral/Venous Blood Culture - Preliminary Culture in Progress Soto/IV: Voiding Method Toilet Active Medications - Current Medications Current Medications: Generic Name Dose Route Start Last Admin Trade Name Freq PRN Reason Stop Dose Admin Acetaminophen 650 mg 01/28/22 20:58 01/29/22 14:36 Acetaminophen 325 Mg Tab PO 650 mg Q4H PRN Administration Pain MILD(1-3)/Fever >100.5/TAMAYO Heparin Sodium (Porcine) 5,000 unit 01/28/22 22:00 01/30/22 09:17 Heparin 5,000 Unit/1 Ml Vial SUB-Q 5,000 unit Q12HR RAE Administration Hydralazine HCl 10 mg 01/29/22 01:56 01/30/22 05:17 Hydralazine 20 Mg/1 Ml Inj IV 10 mg Q6HR PRN Administration Hypertension Hydromorphone HCl 0.5 mg 01/28/22 20:58 01/30/22 06:45 Hydromorphone 1 Mg/1 Ml Inj IV 0.5 mg Q3H PRN Administration Pain , Severe (7-10) Dextrose/Sodium Chloride 1,000 mls @ 75 mls/hr 01/28/22 21:00 01/30/22 09:22 D5ns IV 75 mls/hr DIRECT RAE Administration Levetiracetam 500 mg/ Dextrose 105 mls @ 400 mls/hr 01/29/22 10:00 01/30/22 09:17 IV 400 mls/hr Q12HR RAE Administration Lorazepam 2 mg 01/28/22 17:45 Lorazepam 2 Mg/Ml Vial IV Q1HR PRN CIWA-Ar 8-15 Lorazepam 4 mg 01/28/22 17:45 Lorazepam 2 Mg/Ml Vial IV Q1HR PRN CIWA-Ar 16-25 Morphine Sulfate 2 mg 01/28/22 20:58 Morphine 2 Mg/1 Ml Inj IV Q4H PRN Pain, Moderate (4-6) Ondansetron HCl 4 mg 01/28/22 20:58 Ondansetron 4 Mg/2 Ml Inj IV Q8H PRN Nausea And Vomiting Oxycodone/Acetaminophen 1 tab 01/28/22 20:58 Oxycodone /Acetaminophen 5-325mg Tab PO Q6H PRN Pain, Moderate (4-6) Sodium Chloride 10 ml 01/28/22 22:00 01/30/22 09:18 Sodium Chloride 0.9% 10 Ml Flush Syringe IV 10 ml BID RAE Administration Sodium Chloride 10 ml 01/28/22 20:58 Sodium Chloride 0.9% 10 Ml Flush Syringe IV PRN PRN LINE FLUSH
[2022-01-30] MEDS: CETIRIZINE 10 MG TAB PO SCH (13:01)
--- NOTE | 2022-01-30 15:02 | Event Note ---
Date: 01/30/[address] scan demonstrating large pancreatic head mass (presumed malignancy) with obstructive pancreatic and biliary duct dilatation. There is no percutaneous pathway that does not involve traversing the stomach. Recommend endoscopic ultrasound assisted biopsy of the pancreatic head mass. Unfortunately I do not believe we have the equipment to perform such a procedure. Consider transfer.
[2022-01-30] MEDS: oxyCODONE /ACETAMINOPHEN 5-325MG TAB PO PRN (17:35)
[2022-01-30] MEDS: CHOLESTYRAMINE (WITH SUGAR) 4 GM PACKET PO SCH (21:48)
[2022-01-31] MEDS: D5W/0.9% NACL 1,000 ML IV SCH ×2 (03:40→14:07)
[2022-01-31 05:50] LABS: Hematocrit 24.7 % (30.3-42.9); Hemoglobin 8.1 gm/dl (10.1-14.3)
[2022-01-31 06:18] LABS: Alanine Aminotransferase 108 units/L (7-56); Albumin 2.6 g/dL (3.9-5); Blood Urea Nitrogen 4 mg/dL (7-17); Calcium 8.5 mg/dL (8.4-10.2); Hemolysis Index 1
[2022-01-31 06:19] LABS: BUN/Creatinine Ratio 20
--- NOTE | 2022-01-31 11:09 | Gastroenterology Progress Note ---
Assessment and Plan Patient in process of transfer to [place] just waiting for acceptance, therefore we will hold off on ERCP at this juncture Patient with presentation highly concerning for metastatic pancreatic malignancy. She does not appear to have cholangitis however she is having significant symptoms from her obstructive jaundice Plan is for transfer to [place] and she can undergo EUS/ERCP there, we only offer ERCP services here Regarding pruritus likely due to her severe cholestasis will continue therapy with cholestyramine and anti-histamines as they are helping - Patient Problems (1) Elevated liver enzymes Current Visit: Yes Status: Acute (2) Jaundice Current Visit: Yes Status: Acute (3) Obstructive jaundice Current Visit: Yes Status: Acute (4) Pancreatic mass Current Visit: Yes Status: Acute Subjective Date of service: 01/31/22 Principal diagnosis: Obstructive jaundice Interval history: Patient reports still with epigastric abdominal pain though mildly improved today. Sharp moderate associated decreased appetite and jaundice and diffuse pruritus She reports mild to moderate improvement in the pruritus with the medications I started for her yesterday Objective - Constitutional Vitals: Temp Pulse Resp BP Pulse Ox 98.7 F 92 H 20 151/90 100 01/31/22 07:29 01/31/22 07:29 01/31/22 07:29 01/31/22 07:29 01/31/22 07:29 General appearance: no acute distress - EENT Eyes: scleral icterus - Respiratory Respiratory effort: normal - Gastrointestinal General gastrointestinal: Present: soft, tender - Integumentary Integumentary: Present: dry, jaundice - Psychiatric Psychiatric: appropriate mood/affect - Labs CBC & Chem 7: 01/31/22 05:14 01/31/22 05:14 Labs: Laboratory Results - last 24 hr 01/31/22 01/31/22 05:14 05:14 Hgb 8.1 L Hct 24.7 L Sodium 138 Potassium 3.6 Chloride 107.7 H Carbon Dioxide 18 L Anion Gap 16 BUN 4 L Creatinine 0.2 L Estimated GFR > 60 BUN/Creatinine Ratio 20 Glucose 104 H Calcium 8.5 Phosphorus 3.70 Magnesium 1.60 L Total Bilirubin 14.00 H AST 160 H ALT 108 H Alkaline Phosphatase 685 H Total Protein 4.8 L Albumin 2.6 L Albumin/Globulin Ratio 1.2
--- NOTE | 2022-01-31 11:22 | Progress Note ---
Assessment and Plan - Patient Problems (1) Pancreatic cancer Current Visit: Yes Status: Acute Qualifiers: Pancreatic malignancy location: head of pancreas Qualified Code(s): C25.0 - Malignant neoplasm of head of pancreas Plan to address problem: 1) Dr. Rufino Staton has agreed to consult after pt is transferred to [place]. Plan is for ERCP with EUS and biopsy followed by neoadjuvant chemotherapy and surgery if down staging is accomplished. Dr. Staton is aware of pt's self pay status. Subjective Date of service: 01/31/22 Patient Reports: Positive: no new complaints Objective Vital Signs - 12hr 01/31/22 01/31/22 01/31/22 00:03 04:05 07:29 Temperature 97.2 F L 99.1 F 98.7 F Pulse Rate 88 88 92 H Respiratory 17 18 20 Rate Blood Pressure 142/87 153/82 151/90 O2 Sat by Pulse 98 100 100 Oximetry - Abdomen PM_46_[id number] 4, PM_46_EXABD1 6, PM_46_EXABD1 8 Hernia: none - Labs 01/31/22 05:14 01/31/22 05:14 Diabetes panel 01/31/22 Range/Units 05:14 Sodium 138 (137-145) mmol/L Potassium 3.6 (3.6-5.0) mmol/L Chloride 107.7 H (98-107) mmol/L Carbon Dioxide 18 L (22-30) mmol/L BUN 4 L (7-17) mg/dL Creatinine 0.2 L (0.6-1.2) mg/dL Glucose 104 H (65-100) mg/dL Calcium 8.5 (8.4-10.2) mg/dL AST 160 H (5-40) units/L ALT 108 H (7-56) units/L Alkaline Phosphatase 685 H (35-129) units/L Total Protein 4.8 L (6.3-8.2) g/dL Albumin 2.6 L (3.9-5) g/dL Calcium panel 01/31/22 Range/Units 05:14 Calcium 8.5 (8.4-10.2) mg/dL Phosphorus 3.70 (2.5-4.5) mg/dL Albumin 2.6 L (3.9-5) g/dL Pituitary panel 01/31/22 Range/Units 05:14 Sodium 138 (137-145) mmol/L Potassium 3.6 (3.6-5.0) mmol/L Chloride 107.7 H (98-107) mmol/L Carbon Dioxide 18 L (22-30) mmol/L BUN 4 L (7-17) mg/dL Creatinine 0.2 L (0.6-1.2) mg/dL Glucose 104 H (65-100) mg/dL Calcium 8.5 (8.4-10.2) mg/dL Adrenal panel 01/31/22 Range/Units 05:14 Sodium 138 (137-145) mmol/L Potassium 3.6 (3.6-5.0) mmol/L Chloride 107.7 H (98-107) mmol/L Carbon Dioxide 18 L (22-30) mmol/L BUN 4 L (7-17) mg/dL Creatinine 0.2 L (0.6-1.2) mg/dL Glucose 104 H (65-100) mg/dL Calcium 8.5 (8.4-10.2) mg/dL Total Bilirubin 14.00 H (0.1-1.2) mg/dL AST 160 H (5-40) units/L ALT 108 H (7-56) units/L Alkaline Phosphatase 685 H (35-129) units/L Total Protein 4.8 L (6.3-8.2) g/dL Albumin 2.6 L (3.9-5) g/dL
[2022-01-31] MEDS: CETIRIZINE 10 MG TAB PO SCH (11:25)
[2022-01-31] MEDS: NIFEdipine XL 30 MG TAB PO SCH (11:25)
[2022-01-31] MEDS: CHOLESTYRAMINE (WITH SUGAR) 4 GM PACKET PO SCH ×2 (11:31→21:12)
[2022-01-31] MEDS: HEPARIN 5,000 UNIT/1 ML VIAL SUB-Q SCH ×2 (11:32→21:13)
[2022-01-31] MEDS: levETIRAcetam 500 MG in DEXTROSE 5% IN WATER 100 ML IV SCH ×2 (13:12→21:12)
--- NOTE | 2022-01-31 13:50 | Progress Note ---
Assessment and Plan Assessment and plan: Update (02/01/2020): Currently awaiting possible approval on transfer by [facility]. Discussed with transfer center over the weekend, and it is fully aware that Dr. Rufino Staton (hepatobiliary surgeon) wants to accept the patient despite her being self-pay. Current plans for ERCP to relieve biliary obstruction and biopsy are currently on hold at [facility] based on [facility]'s decision. The patient has been updated, and she is amendable to transfer. Should [facility] declined acceptance, gastroenterology should be reconsulted to perform ERCP as soon as possible. Based on vascular surgery's note, the patient would only be able to undergo endoscopic ultrasound with biopsy to obtain a tissue sample. #Chronic symptomatic anemiastable Hemoglobin 6.8 status post transfusion of 2 units packed RBCs (5.3 on admission) Transfusing additional 1 unit packed RBC Transfuse if hemoglobin less than 7 or patient becomes symptomatic #Leukocytosisresolved WBC 13 (on presentation 11.5) Unclear etiology; however, less likely to be infectious in nature. Continue to monitor. #Pancreatic mass #Biliary obstruction secondary to pancreatic mass #Concern for pancreatic cancer #Hyperbilirubinemia #Obstructive jaundice #Elevated transaminases Total bilirubin 15.7, AST 264, ALT 141, alkaline phosphatase 772 CT abdomen/pelvis revealing "Marked intra and extrahepatic biliary ductal dilatation with obstruction of the common bile duct with large mass in the region of the pancreatic head measuring 5.3 x 5.2 cm. Severe stenosis and narrowing of the portal vein. Adenopathy in the upper abdomen. Findings s uggesting pancreatic malignancy with metastatic harriett disease. Pancreatic ductal dilatation is identified. Marked gallbladder distention with fluid surrounding the gallbladder secondary to obstructive change." Gastroenterology consulted; appreciate recs General surgery consulted; appreciate recs Discussion was had with [facility] about possible transfer if accepted (must be approved given the fact the patient is self-pay). Dr. Staton (hepatobiliary surgeon) expressed desire to accept patient. Pending review and possible approval on 01/31/2022 #Severe protein caloric malnutrition Albumin 2.9 Nutrition consulted; pending recs. Starting dietary supplements. #Hypokalemiaresolved Potassium 3.2 Repleting. Continue to monitor. #Hyponatremiaresolved Sodium 131--> 137 #Advanced care planning -Disease education conducted, care plan discussed, diagnoses discussed, prognosis discussed, and patient acknowledges understanding with care plan -Time: +30 min Disposition Plan: Continue medical management Total Time Spent with Patient (Minutes): 30 minutes History Interval history: No acute events overnight. Hospitalist Physical - Constitutional Vitals: Temp Pulse Resp BP Pulse Ox 98.7 F 92 H 20 151/90 100 01/31/22 07:29 01/31/22 07:29 01/31/22 07:29 01/31/22 07:29 01/31/22 07:29 General appearance: Present: no acute distress, cachectic, other (Jaundice) - EENT Eyes: Present: PERRL, EOM intact ENT: hearing intact, clear oral mucosa, dentition normal - Neck Neck: Present: supple, normal ROM - Respiratory Respiratory effort: normal Respiratory: bilateral: CTA - Cardiovascular Rhythm: regular Heart Sounds: Present: S1 & S2 - Extremities Extremities: no ischemia, pulses intact, pulses symmetrical, No edema, normal temperature, normal color, Full ROM Peripheral Pulses: within normal limits - Abdominal General gastrointestinal: soft, tender, non-distended, normal bowel sounds Localized gastrointestinal: tender: diffuse - Integumentary Integumentary: Present: clear, warm, dry - Psychiatric Psychiatric: appropriate mood/affect, intact judgment & insight, memory intact, cooperative - Neurologic Neurologic: CNII-XII intact, moves all extremities - Allied Health Allied health notes reviewed: nursing HEART Score - HEART Score Troponin: Troponin T < 0.010 ng/mL (0.00-0.029) 01/28/22 12:27 Results - Labs CBC & Chem 7: 01/31/22 05:14 01/31/22 05:14 Labs: Laboratory Last Values WBC 10.8 K/mm3 (4.5-11.0) 01/30/22 05:24 RBC 3.12 M/mm3 (3.65-5.03) L 01/30/22 05:24 Hgb 8.1 gm/dl (10.1-14.3) L 01/31/22 05:14 Hct 24.7 % (30.3-42.9) L 01/31/22 05:14 MCV 82 fl (79-97) 01/30/22 05:24 MCH 28 pg (28-32) 01/30/22 05:24 MCHC 34 % (30-34) 01/30/22 05:24 RDW 18.1 % (13.2-15.2) H 01/30/22 05:24 Plt Count 449 K/mm3 (140-440) H 01/30/22 05:24 Lymph % (Auto) [employer] Engineer 01/30/22 05:24 [place] % (Auto) [employer] Service Engineer 01/29/22 03:54 Eos % (Auto) [employer] Service Engineer 01/28/22 12:27 Baso % (Auto) [employer] Service Engineer 01/28/22 12:27 Lymph # (Auto) [employer] Service Engineer 01/30/22 05:24 Stoddard # (Auto) [employer] Service Engineer 01/28/22 12:27 Eos # (Auto) [employer] Service Engineer 01/28/22 12:27 Baso # (Auto) [employer] Service Engineer 01/28/22 12:27 Add Manual Diff Complete 01/30/22 05:24 Total Counted 100 01/30/22 05:24 Seg Neutrophils % [employer] Service Engineer 01/30/22 05:24 Seg Neuts % (Manual) 67.0 % (40.0-70.0) 01/30/22 05:24 Band Neutrophils % 0 % 01/30/22 05:24 Lymphocytes % (Manual) 24.0 % (13.4-35.0) 01/30/22 05:24 Reactive Lymphs % (Man) 0 % 01/30/22 05:24 Monocytes % (Manual) 6.0 % (0.0-7.3) 01/30/22 05:24 Eosinophils % (Manual) 3.0 % (0.0-4.3) 01/30/22 05:24 Basophils % (Manual) 0 % (0.0-1.8) 01/30/22 05:24 Metamyelocytes % 0 % 01/30/22 05:24 Myelocytes % 0 % 01/30/22 05:24 Promyelocytes % 0 % 01/30/22 05:24 Blast Cells % 0 % 01/30/22 05:24 Nucleated RBC % 2.0 % (0.0-0.9) H 01/30/22 05:24 Seg Neutrophils # [employer] Service Engineer 01/28/22 12:27 Seg Neutrophils # Man 7.2 K/mm3 (1.8-7.7) 01/30/22 05:24 Band Neutrophils # 0.0 K/mm3 01/30/22 05:24 Lymphocytes # (Manual) 2.6 K/mm3 (1.2-5.4) 01/30/22 05:24 Abs React Lymphs (Man) 0.0 K/mm3 01/30/22 05:24 Monocytes # (Manual) 0.6 K/mm3 (0.0-0.8) 01/30/22 05:24 Eosinophils # (Manual) 0.3 K/mm3 (0.0-0.4) 01/30/22 05:24 Basophils # (Manual) 0.0 K/mm3 (0.0-0.1) 01/30/22 05:24 Metamyelocytes # 0.0 K/mm3 01/30/22 05:24 Myelocytes # 0.0 K/mm3 01/30/22 05:24 Promyelocytes # 0.0 K/mm3 01/30/22 05:24 Blast Cells # 0.0 K/mm3 01/30/22 05:24 WBC Morphology Not Reportable 01/30/22 05:24 Hypersegmented Neuts Not Reportable 01/30/22 05:24 Hyposegmented Neuts Not Reportable 01/30/22 05:24 Hypogranular Neuts Not Reportable 01/30/22 05:24 Smudge Cells Not Reportable 01/30/22 05:24 Toxic Granulation Not Reportable 01/30/22 05:24 Toxic Vacuolation Not Reportable 01/30/22 05:24 Dohle Bodies Not Reportable 01/30/22 05:24 Pelger-Huet Anomaly Not Reportable 01/30/22 05:24 Trevor Rods Not Reportable 01/30/22 05:24 Platelet Estimate Consistent w auto 01/30/22 05:24 Clumped Platelets Not Reportable 01/30/22 05:24 Plt Clumps, EDTA Not Reportable 01/30/22 05:24 Large Platelets Not Reportable 01/30/22 05:24 Giant Platelets Not Reportable 01/30/22 05:24 Platelet Satelliting Not Reportable 01/30/22 05:24 Plt Morphology Comment Not Reportable 01/30/22 05:24 RBC Morphology Not Reportable 01/30/22 05:24 Dimorphic RBCs Not Reportable 01/30/22 05:24 Polychromasia Not Reportable 01/30/22 05:24 Hypochromasia 1+ 01/30/22 05:24 Poikilocytosis Not Reportable 01/30/22 05:24 Anisocytosis 1+ 01/30/22 05:24 Microcytosis Not Reportable 01/30/22 05:24 Macrocytosis Not Reportable 01/30/22 05:24 Spherocytes Not Reportable 01/30/22 05:24 Pappenheimer Bodies Not Reportable 01/30/22 05:24 Sickle Cells Not Reportable 01/30/22 05:24 Target Cells Not Reportable 01/30/22 05:24 Tear Drop Cells Not Reportable 01/30/22 05:24 Ovalocytes Not Reportable 01/30/22 05:24 Stomatocytes Few 01/28/22 12:27 Helmet Cells Not Reportable 01/30/22 05:24 Lozoya-Scofield Bodies Not Reportable 01/30/22 05:24 Elsa Rings Not Reportable 01/30/22 05:24 [place] Cells Not Reportable 01/30/22 05:24 Bite Cells Not Reportable 01/30/22 05:24 Crenated Cell Not Reportable 01/30/22 05:24 Elliptocytes Not Reportable 01/30/22 05:24 Acanthocytes (Spur) Not Reportable 01/30/22 05:24 Rouleaux Not Reportable 01/30/22 05:24 Hemoglobin C Crystals Not Reportable 01/30/22 05:24 Schistocytes Not Reportable 01/30/22 05:24 Malaria parasites Not Reportable 01/30/22 05:24 Robby Bodies Not Reportable 01/30/22 05:24 Hem Pathologist Commnt No 01/30/22 05:24 PT 15.9 Sec. (12.2-14.9) H 01/28/22 12:27 INR 1.14 (0.87-1.13) H 01/28/22 12:27 APTT 32.5 Sec. (24.2-36.6) 01/28/22 12:27 Sodium 138 mmol/L (137-145) 01/31/22 05:14 Potassium 3.6 mmol/L (3.6-5.0) 01/31/22 05:14 Chloride 107.7 mmol/L (98-107) H 01/31/22 05:14 Carbon Dioxide 18 mmol/L (22-30) L 01/31/22 05:14 Anion Gap 16 mmol/L 01/31/22 05:14 BUN 4 mg/dL (7-17) L 01/31/22 05:14 Creatinine 0.2 mg/dL (0.6-1.2) L 01/31/22 05:14 Estimated GFR > 60 ml/min 01/31/22 05:14 BUN/Creatinine Ratio 20 % 01/31/22 05:14 Glucose 104 mg/dL (65-100) H 01/31/22 05:14 Calcium 8.5 mg/dL (8.4-10.2) 01/31/22 05:14 Phosphorus 3.70 mg/dL (2.5-4.5) 01/31/22 05:14 Magnesium 1.60 mg/dL (1.7-2.3) L 01/31/22 05:14 Total Bilirubin 14.00 mg/dL (0.1-1.2) H 01/31/22 05:14 AST 160 units/L (5-40) H 01/31/22 05:14 ALT 108 units/L (7-56) H 01/31/22 05:14 Alkaline Phosphatase 685 units/L (35-129) H 01/31/22 05:14 Ammonia 28.0 umol/L (25-60) 01/28/22 15:36 Troponin T < 0.010 ng/mL (0.00-0.029) 01/28/22 12:27 NT-Pro-B Natriuret Pep 33.37 pg/mL (0-900) 01/28/22 12:27 Total Protein 4.8 g/dL (6.3-8.2) L 01/31/22 05:14 Albumin 2.6 g/dL (3.9-5) L 01/31/22 05:14 Albumin/Globulin Ratio 1.2 % 01/31/22 05:14 TSH 1.900 mlU/mL (0.270-4.200) 01/28/22 12:27 Urine Color Siria (Yellow) 01/28/22 15:07 Urine Turbidity Clear (Clear) 01/28/22 15:07 Urine pH 7.0 (5.0-7.0) 01/28/22 15:07 Ur Specific [place] 1.006 (1.003-1.030) 01/28/22 15:07 Urine Protein <15 mg/dl mg/dL (Negative) 01/28/22 15:07 Urine Glucose (UA) 150 mg/dL (Negative) 01/28/22 15:07 Urine Ketones Neg mg/dL (Negative) 01/28/22 15:07 Urine Blood Mod (Negative) 01/28/22 15:07 Urine Nitrite Neg (Negative) 01/28/22 15:07 Urine Bilirubin Mod (Negative) 01/28/22 15:07 Urine Ictotest Not Reportable 01/28/22 15:07 Urine Urobilinogen 4.0 mg/dL (<2.0) 01/28/22 15:07 Ur Leukocyte Esterase Tr (Negative) 01/28/22 15:07 Urine WBC (Auto) 3.0 /HPF (0.0-6.0) 01/28/22 15:07 Urine RBC (Auto) 52.0 /HPF (0.0-6.0) 01/28/22 15:07 U Epithel Cells (Auto) 17.0 /HPF (0-13.0) H 01/28/22 15:07 Urine Bacteria (Auto) 2+ /HPF (Negative) 01/28/22 15:07 Urine Mucus Few /HPF 01/28/22 15:07 Urine Opiates Screen Presumptive negative 01/28/22 15:07 Urine Methadone Screen Presumptive negative 01/28/22 15:07 Ur Barbiturates Screen Presumptive negative 01/28/22 15:07 Ur Phencyclidine Scrn Presumptive negative 01/28/22 15:07 Ur Amphetamines Screen Presumptive negative 01/28/22 15:07 U Benzodiazepines Scrn Presumptive negative 01/28/22 15:07 Urine Cocaine Screen Presumptive negative 01/28/22 15:07 U Marijuana (THC) Screen Presumptive negative 01/28/22 15:07 Drugs of Abuse Note Disclamer 01/28/22 15:07 Hepatitis A IgM Ab Non-reactive (NonReactive) 01/28/22 15:42 Hep Bs Antigen Non-reactive (Negative) 01/28/22 15:42 Hep B Core IgM Ab Non-reactive (NonReactive) 01/28/22 15:42 Hepatitis C Antibody Non-reactive (NonReactive) 01/28/22 15:42 Blood Type A POSITIVE 01/28/22 15:44 Antibody Screen Negative 01/28/22 15:44 Crossmatch See Detail 01/28/22 15:44 Microbiology: Microbiology 01/29/22 11:11 Peripheral/Venous Blood Culture - Preliminary NO GROWTH AFTER 48 HOURS 01/29/22 10:59 Peripheral/Venous Blood Culture - Preliminary NO GROWTH AFTER 48 HOURS Soto/IV: Voiding Method Toilet Active Medications - Current Medications Current Medications: Generic Name Dose Route Start Last Admin Trade Name Freq PRN Reason Stop Dose Admin Acetaminophen 650 mg 01/28/22 20:58 01/29/22 14:36 Acetaminophen 325 Mg Tab PO 650 mg Q4H PRN Administration Pain MILD(1-3)/Fever >100.5/TAMAYO Cetirizine HCl 10 mg 01/30/22 12:00 01/31/22 11:25 Cetirizine 10 Mg Tab PO 10 mg QDAY RAE Administration Cholestyramine Resin 4 gm 01/30/22 22:00 01/31/22 11:31 Cholestyramine (With Sugar) 4 Gm Packet PO 4 gm BID RAE Administration Heparin Sodium (Porcine) 5,000 unit 01/28/22 22:00 01/31/22 11:32 Heparin 5,000 Unit/1 Ml Vial SUB-Q 5,000 unit Q12HR RAE Administration Hydralazine HCl 10 mg 01/29/22 01:56 01/30/22 05:17 Hydralazine 20 Mg/1 Ml Inj IV 10 mg Q6HR PRN Administration Hypertension Hydromorphone HCl 0.5 mg 01/28/22 20:58 01/30/22 06:45 Hydromorphone 1 Mg/1 Ml Inj IV 0.5 mg Q3H PRN Administration Pain , Severe (7-10) Dextrose/Sodium Chloride 1,000 mls @ 75 mls/hr 01/28/22 21:00 01/31/22 03:40 D5ns IV 75 mls/hr DIRECT RAE Administration Levetiracetam 500 mg/ Dextrose 105 mls @ 400 mls/hr 01/29/22 10:00 01/31/22 13:12 IV 400 mls/hr Q12HR RAE Administration Lorazepam 2 mg 01/28/22 17:45 Lorazepam 2 Mg/Ml Vial IV Q1HR PRN CIWA-Ar 8-15 Lorazepam 4 mg 01/28/22 17:45 Lorazepam 2 Mg/Ml Vial IV Q1HR PRN CIWA-Ar 16-25 Morphine Sulfate 2 mg 01/28/22 20:58 01/31/22 13:12 Morphine 2 Mg/1 Ml Inj IV 2 mg Q4H PRN Administration Pain, Moderate (4-6) Nifedipine 30 mg 01/31/22 10:00 01/31/22 11:25 Nifedipine Xl 30 Mg Tab PO 30 mg QDAY RAE Administration Ondansetron HCl 4 mg 01/28/22 20:58 Ondansetron 4 Mg/2 Ml Inj IV Q8H PRN Nausea And Vomiting Oxycodone/Acetaminophen 1 tab 01/28/22 20:58 01/30/22 17:35 Oxycodone /Acetaminophen 5-325mg Tab PO 1 tab Q6H PRN Administration Pain, Moderate (4-6) Sodium Chloride 10 ml 01/28/22 22:00 01/31/22 11:33 Sodium Chloride 0.9% 10 Ml Flush Syringe IV 10 ml BID RAE Administration Sodium Chloride 10 ml 01/28/22 20:58 Sodium Chloride 0.9% 10 Ml Flush Syringe IV PRN PRN LINE FLUSH
[2022-02-01] MEDS: D5W/0.9% NACL 1,000 ML IV SCH (05:35)
--- NOTE | 2022-02-01 08:14 | Progress Note ---
Hospitalist Physical - Constitutional Vitals: Temp Pulse Resp BP Pulse Ox 98.7 F 98 H 14 168/108 99 02/01/22 07:36 02/01/22 07:36 02/01/22 07:36 02/01/22 07:36 02/01/22 07:36 General appearance: Present: no acute distress, cachectic, other (Jaundice) HEART Score - HEART Score Troponin: Troponin T < 0.010 ng/mL (0.00-0.029) 01/28/22 12:27 Results - Labs CBC & Chem 7: 01/31/22 05:14 01/31/22 05:14 Labs: Laboratory Last Values WBC 10.8 K/mm3 (4.5-11.0) 01/30/22 05:24 RBC 3.12 M/mm3 (3.65-5.03) L 01/30/22 05:24 Hgb 8.1 gm/dl (10.1-14.3) L 01/31/22 05:14 Hct 24.7 % (30.3-42.9) L 01/31/22 05:14 MCV 82 fl (79-97) 01/30/22 05:24 MCH 28 pg (28-32) 01/30/22 05:24 MCHC 34 % (30-34) 01/30/22 05:24 RDW 18.1 % (13.2-15.2) H 01/30/22 05:24 Plt Count 449 K/mm3 (140-440) H 01/30/22 05:24 Lymph % (Auto) Petrologist 01/30/22 05:24 Hughes % (Auto) Petrologist 01/29/22 03:54 Eos % (Auto) Petrologist 01/28/22 12:27 Baso % (Auto) Petrologist 01/28/22 12:27 Lymph # (Auto) Petrologist 01/30/22 05:24 Hughes # (Auto) Petrologist 01/28/22 12:27 Eos # (Auto) Petrologist 01/28/22 12:27 Baso # (Auto) Petrologist 01/28/22 12:27 Add Manual Diff Complete 01/30/22 05:24 Total Counted 100 01/30/22 05:24 Seg Neutrophils % Petrologist 01/30/22 05:24 Seg Neuts % (Manual) 67.0 % (40.0-70.0) 01/30/22 05:24 Band Neutrophils % 0 % 01/30/22 05:24 Lymphocytes % (Manual) 24.0 % (13.4-35.0) 01/30/22 05:24 Reactive Lymphs % (Man) 0 % 01/30/22 05:24 Monocytes % (Manual) 6.0 % (0.0-7.3) 01/30/22 05:24 Eosinophils % (Manual) 3.0 % (0.0-4.3) 01/30/22 05:24 Basophils % (Manual) 0 % (0.0-1.8) 01/30/22 05:24 Metamyelocytes % 0 % 01/30/22 05:24 Myelocytes % 0 % 01/30/22 05:24 Promyelocytes % 0 % 01/30/22 05:24 Blast Cells % 0 % 01/30/22 05:24 Nucleated RBC % 2.0 % (0.0-0.9) H 01/30/22 05:24 Seg Neutrophils # Petrologist 01/28/22 12:27 Seg Neutrophils # Man 7.2 K/mm3 (1.8-7.7) 01/30/22 05:24 Band Neutrophils # 0.0 K/mm3 01/30/22 05:24 Lymphocytes # (Manual) 2.6 K/mm3 (1.2-5.4) 01/30/22 05:24 Abs React Lymphs (Man) 0.0 K/mm3 01/30/22 05:24 Monocytes # (Manual) 0.6 K/mm3 (0.0-0.8) 01/30/22 05:24 Eosinophils # (Manual) 0.3 K/mm3 (0.0-0.4) 01/30/22 05:24 Basophils # (Manual) 0.0 K/mm3 (0.0-0.1) 01/30/22 05:24 Metamyelocytes # 0.0 K/mm3 01/30/22 05:24 Myelocytes # 0.0 K/mm3 01/30/22 05:24 Promyelocytes # 0.0 K/mm3 01/30/22 05:24 Blast Cells # 0.0 K/mm3 01/30/22 05:24 WBC Morphology Not Reportable 01/30/22 05:24 Hypersegmented Neuts Not Reportable 01/30/22 05:24 Hyposegmented Neuts Not Reportable 01/30/22 05:24 Hypogranular Neuts Not Reportable 01/30/22 05:24 Smudge Cells Not Reportable 01/30/22 05:24 Toxic Granulation Not Reportable 01/30/22 05:24 Toxic Vacuolation Not Reportable 01/30/22 05:24 Dohle Bodies Not Reportable 01/30/22 05:24 Pelger-Huet Anomaly Not Reportable 01/30/22 05:24 Trevor Rods Not Reportable 01/30/22 05:24 Platelet Estimate Consistent w auto 01/30/22 05:24 Clumped Platelets Not Reportable 01/30/22 05:24 Plt Clumps, EDTA Not Reportable 01/30/22 05:24 Large Platelets Not Reportable 01/30/22 05:24 Giant Platelets Not Reportable 01/30/22 05:24 Platelet Satelliting Not Reportable 01/30/22 05:24 Plt Morphology Comment Not Reportable 01/30/22 05:24 RBC Morphology Not Reportable 01/30/22 05:24 Dimorphic RBCs Not Reportable 01/30/22 05:24 Polychromasia Not Reportable 01/30/22 05:24 Hypochromasia 1+ 01/30/22 05:24 Poikilocytosis Not Reportable 01/30/22 05:24 Anisocytosis 1+ 01/30/22 05:24 Microcytosis Not Reportable 01/30/22 05:24 Macrocytosis Not Reportable 01/30/22 05:24 Spherocytes Not Reportable 01/30/22 05:24 Pappenheimer Bodies Not Reportable 01/30/22 05:24 Sickle Cells Not Reportable 01/30/22 05:24 Target Cells Not Reportable 01/30/22 05:24 Tear Drop Cells Not Reportable 01/30/22 05:24 Ovalocytes Not Reportable 01/30/22 05:24 Stomatocytes Few 01/28/22 12:27 Helmet Cells Not Reportable 01/30/22 05:24 [place] Bodies Not Reportable 01/30/22 05:24 Elkins Rings Not Reportable 01/30/22 05:24 Pia Cells Not Reportable 01/30/22 05:24 Bite Cells Not Reportable 01/30/22 05:24 Crenated Cell Not Reportable 01/30/22 05:24 Elliptocytes Not Reportable 01/30/22 05:24 Acanthocytes (Spur) Not Reportable 01/30/22 05:24 Rouleaux Not Reportable 01/30/22 05:24 Hemoglobin C Crystals Not Reportable 01/30/22 05:24 Schistocytes Not Reportable 01/30/22 05:24 Malaria parasites Not Reportable 01/30/22 05:24 Robby Bodies Not Reportable 01/30/22 05:24 Hem Pathologist Commnt No 01/30/22 05:24 PT 15.9 Sec. (12.2-14.9) H 01/28/22 12:27 INR 1.14 (0.87-1.13) H 01/28/22 12:27 APTT 32.5 Sec. (24.2-36.6) 01/28/22 12:27 Sodium 138 mmol/L (137-145) 01/31/22 05:14 Potassium 3.6 mmol/L (3.6-5.0) 01/31/22 05:14 Chloride 107.7 mmol/L (98-107) H 01/31/22 05:14 Carbon Dioxide 18 mmol/L (22-30) L 01/31/22 05:14 Anion Gap 16 mmol/L 01/31/22 05:14 BUN 4 mg/dL (7-17) L 01/31/22 05:14 Creatinine 0.2 mg/dL (0.6-1.2) L 01/31/22 05:14 Estimated GFR > 60 ml/min 01/31/22 05:14 BUN/Creatinine Ratio 20 % 01/31/22 05:14 Glucose 104 mg/dL (65-100) H 01/31/22 05:14 Calcium 8.5 mg/dL (8.4-10.2) 01/31/22 05:14 Phosphorus 3.70 mg/dL (2.5-4.5) 01/31/22 05:14 Magnesium 1.60 mg/dL (1.7-2.3) L 01/31/22 05:14 Total Bilirubin 14.00 mg/dL (0.1-1.2) H 01/31/22 05:14 AST 160 units/L (5-40) H 01/31/22 05:14 ALT 108 units/L (7-56) H 01/31/22 05:14 Alkaline Phosphatase 685 units/L (35-129) H 01/31/22 05:14 Ammonia 28.0 umol/L (25-60) 01/28/22 15:36 Troponin T < 0.010 ng/mL (0.00-0.029) 01/28/22 12:27 NT-Pro-B Natriuret Pep 33.37 pg/mL (0-900) 01/28/22 12:27 Total Protein 4.8 g/dL (6.3-8.2) L 01/31/22 05:14 Albumin 2.6 g/dL (3.9-5) L 01/31/22 05:14 Albumin/Globulin Ratio 1.2 % 01/31/22 05:14 TSH 1.900 mlU/mL (0.270-4.200) 01/28/22 12:27 Urine Color Siria (Yellow) 01/28/22 15:07 Urine Turbidity Clear (Clear) 01/28/22 15:07 Urine pH 7.0 (5.0-7.0) 01/28/22 15:07 Ur Specific Wilkinson 1.006 (1.003-1.030) 01/28/22 15:07 Urine Protein <15 mg/dl mg/dL (Negative) 01/28/22 15:07 Urine Glucose (UA) 150 mg/dL (Negative) 01/28/22 15:07 Urine Ketones Neg mg/dL (Negative) 01/28/22 15:07 Urine Blood Mod (Negative) 01/28/22 15:07 Urine Nitrite Neg (Negative) 01/28/22 15:07 Urine Bilirubin Mod (Negative) 01/28/22 15:07 Urine Ictotest Not Reportable 01/28/22 15:07 Urine Urobilinogen 4.0 mg/dL (<2.0) 01/28/22 15:07 Ur Leukocyte Esterase Tr (Negative) 01/28/22 15:07 Urine WBC (Auto) 3.0 /HPF (0.0-6.0) 01/28/22 15:07 Urine RBC (Auto) 52.0 /HPF (0.0-6.0) 01/28/22 15:07 U Epithel Cells (Auto) 17.0 /HPF (0-13.0) H 01/28/22 15:07 Urine Bacteria (Auto) 2+ /HPF (Negative) 01/28/22 15:07 Urine Mucus Few /HPF 01/28/22 15:07 Urine Opiates Screen Presumptive negative 01/28/22 15:07 Urine Methadone Screen Presumptive negative 01/28/22 15:07 Ur Barbiturates Screen Presumptive negative 01/28/22 15:07 Ur Phencyclidine Scrn Presumptive negative 01/28/22 15:07 Ur Amphetamines Screen Presumptive negative 01/28/22 15:07 U Benzodiazepines Scrn Presumptive negative 01/28/22 15:07 Urine Cocaine Screen Presumptive negative 01/28/22 15:07 U Marijuana (THC) Screen Presumptive negative 01/28/22 15:07 Drugs of Abuse Note Disclamer 01/28/22 15:07 Hepatitis A IgM Ab Non-reactive (NonReactive) 01/28/22 15:42 Hep Bs Antigen Non-reactive (Negative) 01/28/22 15:42 Hep B Core IgM Ab Non-reactive (NonReactive) 01/28/22 15:42 Hepatitis C Antibody Non-reactive (NonReactive) 01/28/22 15:42 Blood Type A POSITIVE 01/28/22 15:44 Antibody Screen Negative 01/28/22 15:44 Crossmatch See Detail 01/28/22 15:44 Microbiology: Microbiology 01/29/22 11:11 Peripheral/Venous Blood Culture - Preliminary NO GROWTH AFTER 48 HOURS 01/29/22 10:59 Peripheral/Venous Blood Culture - Preliminary NO GROWTH AFTER 48 HOURS Soto/IV: Voiding Method Toilet Active Medications - Current Medications Current Medications: Generic Name Dose Route Start Last Admin Trade Name Freq PRN Reason Stop Dose Admin Acetaminophen 650 mg 01/28/22 20:58 01/29/22 14:36 Acetaminophen 325 Mg Tab PO 650 mg Q4H PRN Administration Pain MILD(1-3)/Fever >100.5/TAMAYO Cetirizine HCl 10 mg 01/30/22 12:00 01/31/22 11:25 Cetirizine 10 Mg Tab PO 10 mg QDAY RAE Administration Cholestyramine Resin 4 gm 01/30/22 22:00 01/31/22 21:12 Cholestyramine (With Sugar) 4 Gm Packet PO 4 gm BID RAE Administration Heparin Sodium (Porcine) 5,000 unit 01/28/22 22:00 01/31/22 21:13 Heparin 5,000 Unit/1 Ml Vial SUB-Q 5,000 unit Q12HR RAE Administration Hydralazine HCl 10 mg 01/29/22 01:56 01/30/22 05:17 Hydralazine 20 Mg/1 Ml Inj IV 10 mg Q6HR PRN Administration Hypertension Hydromorphone HCl 0.5 mg 01/28/22 20:58 01/30/22 06:45 Hydromorphone 1 Mg/1 Ml Inj IV 0.5 mg Q3H PRN Administration Pain , Severe (7-10) Dextrose/Sodium Chloride 1,000 mls @ 75 mls/hr 01/28/22 21:00 02/01/22 05:35 D5ns IV 75 mls/hr DIRECT RAE Administration Levetiracetam 500 mg/ Dextrose 105 mls @ 400 mls/hr 01/29/22 10:00 01/31/22 21:12 IV 02/01/22 14:00 400 mls/hr Q12HR RAE Administration Levetiracetam 500 mg 02/01/22 22:00 Levetiracetam 500 Mg Tab PO BID RAE Lorazepam 2 mg 01/28/22 17:45 Lorazepam 2 Mg/Ml Vial IV Q1HR PRN CIWA-Ar 8-15 Lorazepam 4 mg 01/28/22 17:45 Lorazepam 2 Mg/Ml Vial IV Q1HR PRN CIWA-Ar 16-25 Morphine Sulfate 2 mg 01/28/22 20:58 01/31/22 13:12 Morphine 2 Mg/1 Ml Inj IV 2 mg Q4H PRN Administration Pain, Moderate (4-6) Nifedipine 30 mg 01/31/22 10:00 01/31/22 11:25 Nifedipine Xl 30 Mg Tab PO 30 mg QDAY RAE Administration Ondansetron HCl 4 mg 01/28/22 20:58 Ondansetron 4 Mg/2 Ml Inj IV Q8H PRN Nausea And Vomiting Oxycodone/Acetaminophen 1 tab 01/28/22 20:58 01/30/22 17:35 Oxycodone /Acetaminophen 5-325mg Tab PO 1 tab Q6H PRN Administration Pain, Moderate (4-6) Sodium Chloride 10 ml 01/28/22 22:00 01/31/22 21:13 Sodium Chloride 0.9% 10 Ml Flush Syringe IV 10 ml BID RAE Administration Sodium Chloride 10 ml 01/28/22 20:58 Sodium Chloride 0.9% 10 Ml Flush Syringe IV PRN PRN LINE FLUSH Nutrition/Malnutrition Assess - Dietary Evaluation Nutrition/Malnutrition Findings: Nutrition Notes Start: 01/31/22 16:47 Freq: Status: Active Protocol: Document 01/31/22 16:47 DION (Rec: 01/31/22 17:08 DION [id number]) Nutrition Notes Initial or Follow up Assessment Current Diagnosis Malnutrition Other Pertinent Diagnosis Pancreatic Cancer, Obstructive Jaundice, Cholestasis, Anemia . Current Diet Pt currently on NPO, since admission. Labs/Tests 01/31: Cl 107.7, CO2 18, BUN 4 , Crea 0.2, Glu 104, Mg 1.6. Pertinent Medications 01/31: D5/0.45ns 1000 ml @ 75 ml/hr, others nutritionally unremarkable. Height 5 ft 1 in Weight 53.7 kg Gabriels Body Weight (kg) 47.72 BMI 22.4 Intake Prior to Admission Poor Weight change and time frame Pt states having, untentionally, loss body weight recently. Weight Status Appropriate Subjective/Other Information RD consult for nutritional assessment. Pt currently on NPO, since admission. Pt is on Room Air, O2 saturation @ 100%, according to Physical Assessment History notes. Pt states that her appetite has been reduced during the last month and also has loss some body weight; Pt presents yellow discoloration on her skin and eyes, according to Progress notes. 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 Pt shows no signs of concern for skin risk at the time, according to Physical Assessment History notes. Pt shows signs of concern for risk of malnutrition, according to Physical Assessment History notes, will reassess at F/U. Percent of energy/protein needs met: Pt currently on NPO, since admission. Prescribed Clear Liquids Diet provides for energy/protein needs (590 Kcal/16 g) during LOS; additionally, Dietary Supplements will compensate for possible poor or insufficient PO intake of meals with 720 Kcal and 24 g of protein. Burn Absent Trauma Absent GI Symptoms Other Food Allergy No Skin Integrity/Comment Assessment WNL. Current % PO Other #1 Nutrition Diagnosis No nutrition diagnosis at this time Comments: Will assess Pt's PO intake of meals and need for ONS at F/U. Is patient on ventilator? No Is Patient Ambulatory and/or Out of Bed Yes [facility] [ 1416.194 [id number]] Kcal/Kg value to use for calculation 22 Approximate Energy Requirements Using 1181 kcal/Kg Calculation Used for Recommendations Kcal/kg Additional Notes Protein: 1.2-1.5 g/Kg ABW; 65- 81 g/day. Fluids: 1 ml/Kcal, or as per MD. Nutrition Intervention Change Diet Order: When pertinent, advance to Clear Liquids Diet. Add Supplement/Snack (indicate name/kcal When pertinent, start Ensure /protein ) Clear; TID. Provides kCal: 720 Provides Protein (gm) 24 Follow-Up By: 02/02/22 Additional Comments When pertinent, start monitoring food tolerance, %PO intake of meals, and BM.
[2022-02-01] MEDS: levETIRAcetam 500 MG in DEXTROSE 5% IN WATER 100 ML IV SCH (09:12)
[2022-02-01] MEDS: CETIRIZINE 10 MG TAB PO SCH (09:12)
[2022-02-01] MEDS: CHOLESTYRAMINE (WITH SUGAR) 4 GM PACKET PO SCH (09:12)
[2022-02-01] MEDS: HEPARIN 5,000 UNIT/1 ML VIAL SUB-Q SCH (09:13)
[2022-02-01] MEDS: NIFEdipine XL 30 MG TAB PO SCH (09:13)
--- NOTE | 2022-02-01 10:13 | Gastroenterology Progress Note ---
Assessment and Plan Patient in process of transfer to [place] just waiting for acceptance, therefore we will hold off on ERCP at this juncture Patient with presentation highly concerning for metastatic pancreatic malignancy. She does not appear to have cholangitis however she is having significant symptoms from her obstructive jaundice Plan is for transfer to [place] and she can undergo EUS/ERCP there, we only offer ERCP services here Regarding pruritus likely due to her severe cholestasis will continue therapy with cholestyramine and anti-histamines as they are helping GI Will sign off, if patient not able to be transferred to a tertiary care center for EUS/ERCP please reconsult us back for an ERCP - Patient Problems (1) Elevated liver enzymes Status: Acute (2) Jaundice Status: Acute (3) Obstructive jaundice Status: Acute (4) Pancreatic mass Status: Acute Subjective Date of service: 02/01/22 Principal diagnosis: Obstructive jaundice Interval history: Patient reports still with epigastric abdominal pain stable today. Sharp moderate associated decreased appetite and jaundice and diffuse pruritus She stable pruritis today (yesterday had mild to moderate improvement in the pruritus with the medications I started for her Monday Objective - Constitutional Vitals: Temp Pulse Resp BP Pulse Ox 98.7 F 98 H 14 168/108 99 02/01/22 07:36 02/01/22 07:36 02/01/22 07:36 02/01/22 07:36 02/01/22 07:36 General appearance: no acute distress - EENT Eyes: scleral icterus - Neck Neck: supple - Respiratory Respiratory effort: normal - Gastrointestinal General gastrointestinal: Present: soft - Integumentary Integumentary: Present: jaundice - Neurologic Neurological: alert and oriented x3 - Psychiatric Psychiatric: appropriate mood/affect - Labs CBC & Chem 7: 02/01/22 13:53 02/01/22 13:53
[2022-02-01 14:09] LABS: Hematocrit 24.8 % (30.3-42.9); Hemoglobin 8.2 gm/dl (10.1-14.3)
[2022-02-01 14:42] LABS: Alanine Aminotransferase 98 units/L (7-56); Albumin 2.7 g/dL (3.9-5); Blood Urea Nitrogen 3 mg/dL (7-17); Hemolysis Index 0
[2022-02-01 14:47] LABS: BUN/Creatinine Ratio 15
--- NOTE | 2022-02-01 16:00 | Discharge Summary ---
Providers - Providers Date of Admission: 01/28/22 20:58 Date of discharge: 02/01/22 Attending physician: DORIE ADAMS MD 01/28/22 17:22 Consult to Physician [CONS] Urgent Comment: Consulting Provider: ALISSON MEHTA Physician Instructions: Reason For Exam: pancreatic mass 01/29/22 07:19 Consult to Physician [CONS] Routine Comment: Consulting Provider: CAESAR MEDINA Physician Instructions: Reason For Exam: Obstructive jaundice/ERCP? 01/29/22 08:42 Consult to Dietitian/Nutrition [CONS] Routine Physician Instructions: Reason For Exam: Reason for Consult: Malnutrition 01/30/22 11:40 Consult to Physician [CONS] Routine Comment: Consulting Provider: BRAD YING Physician Instructions: Reason For Exam: Biopsy of pancreatic mass Primary care physician: BEET [employer] SUPERVISOR Hospitalization Condition: Stable Exam - Constitutional Vitals: Temp Pulse Resp BP Pulse Ox 98.7 F 91 H 18 154/95 100 02/01/22 07:36 02/01/22 12:03 02/01/22 12:03 02/01/22 11:56 02/01/22 12:03 Plan Care Plan Goals: Please go to the emergency department at [facility] at [address] [place] [address], [place], [place]. Please give the name of Dr. Steffi Singh. Let them know about your abdominal pain and about the pancreatic mass that was found. Follow up with: PRIMARY CAREMD [Primary Care Provider] - 3-5 Days Prescriptions: RX: levETIRAcetam [Keppra TAB] 500 mg PO BID 30 Days #60 tablet RX: oxyCODONE /ACETAMINOPHEN [Percocet 5/325 mg] 2 tab PO Q6H PRN 30 Days #240 tablet PRN Reason: Pain , Severe (7-10) RX: NIFEdipine XL [Procardia Xl] 30 mg PO QDAY 30 Days #30 tablet RX: Cholestyramine (with Sugar) [Questran] 4 gm PO BID 30 Days #60 packet
[2022-02-01] MEDS: oxyCODONE /ACETAMINOPHEN 5-325MG TAB PO PRN (16:26)
[2022-02-01] MEDS ORDERED: POTASSIUM CHLORIDE ER 20 MEQ TAB PO SCH (17:00)
[2022-02-01 17:25] VITALS: BP 160/98
[2022-02-01] MEDS ORDERED: levETIRAcetam 500 MG TAB PO SCH (22:00)
== END 2022-02-01 17:00 | disposition short-term general hospital (02) | DRG 438 ==
LOC: ED 11:49 → 4A 20:58
PROVIDERS: ADMIT Internal Medicine; ATTEND Student in an Organized Health Care Education/Training Program
PROC: 30233N1 Transfusion of Nonautologous Red Blood Cells into Peripheral Vein, Percutaneous Approach (ICD-10-PCS; principal; 2022-01-28)
DX: K86.9 Disease of pancreas, unspecified (principal); E43 Unspecified severe protein-calorie malnutrition; K83.1 Obstruction of bile duct; E87.1 Hypo-osmolality and hyponatremia; C25.0 Malignant neoplasm of head of pancreas; R56.9 Unspecified convulsions; R74.8 Abnormal levels of other serum enzymes; K86.89 Other specified diseases of pancreas; D64.9 Anemia, unspecified; Z20.822 Contact with and (suspected) exposure to COVID-19; F17.200 Nicotine dependence, unspecified, uncomplicated; E87.6 Hypokalemia; Z88.8 Allergy status to other drugs, medicaments and biological substances
CPT/HCPCS: 36415; 70450; 74177; 80053; 80074; 80307; 81001; 82140; 83735; 83880; 84100; 84443; 84484; 85007; 85014; 85018; 85025; 85610; 85730; 86850; 86900; 86901; 86920; 87040; 93005; 96365; 96375; 99285; G0378; J3490; J7060; J0360; J1170; J1644; J1953; J2060; J2270; J3480; J7030; J7040; J7042; P9016; Q9967; U0003